=== PATIENT | male | born 1950 | race Caucasian/White ===

== ENCOUNTER 2017-11-16 11:02 | Emergency (ER) | payer BC, MEDICARE ==
--- NOTE | 2017-11-16 11:28 | ED ---
Chest Pain HPI - General Chief Complaint: Chest Pain Stated Complaint: chest pain Time Seen by Provider: 11/16/17 11:09 Source: patient, family, RN notes reviewed Mode of arrival: wheelchair Limitations: no limitations - History of Present Illness Initial Comments: This is a 67-year-old male with a history of heart disease and states he had the onset this morning of some sharp intermittent central chest pain currently is gone now is nnyj-gx-[id number] in severity when it came on. He got worse with deep breathing and not associated with any fevers chills sweats. Additionally he does have what he believes been abscessed tooth left lower molar with some drainage and discharges have pain in this area right now it's 8/10 severity. He has any fevers chills nausea vomiting or sweats. MD Complaint: chest pain, other - Related Data Home Medications Medication Instructions Recorded Confirmed Clopidogrel Bisulfate [Clopidogrel] 75 mg PO HS 06/07/14 11/16/17 Lisinopril 2.5 mg PO HS 06/07/14 11/16/17 Aspirin 81 mg PO DAILY 06/21/14 11/16/17 Metoprolol Tartrate [Lopressor] 12.5 mg PO BID 11/16/17 11/16/17 Previous Rx's Medication Instructions Recorded Ibuprofen 800 mg PO Q6HR PRN #20 tablet 11/16/17 Penicillin V Potassium [Pen Vee K] 500 mg PO QID #40 tablet 11/16/17 Allergies Allergy/AdvReac Type Severity Reaction Status Date / Time codeine Allergy Dyspnea Verified 11/16/17 11:27 Review of Systems ROS Statement: Those systems with pertinent positive or pertinent negative responses have been documented in the HPI. ROS Other: All systems not noted in ROS Statement are negative. EKG Findings - EKG Results: EKG: interpreted by MARGARETTE BALL (This does appear to be a normal EKG there is some artifact present.) Past Medical History Past Medical History: Coronary Artery Disease (CAD), Hyperlipidemia, Hypertension, Musculoskeletal Disorder Additional Past Medical History / Comment(s): POSS TORN ROTATOR CUFF, RT History of Any Multi-Drug Resistant Organisms: None Reported Past Surgical History: Back Surgery Additional Past Surgical History / Comment(s): ARCH ARTERIOGRAM 06/14/14 Past Anesthesia/Blood Transfusion Reactions: No Reported Reaction Past Psychological History: No Psychological Hx Reported Smoking Status: Former smoker Past Alcohol Use History: None Reported Past Drug Use History: None Reported - Past Family History Mother Family Medical History: Cancer Mother Sister(s) Family Medical History: Cancer General Exam - General Exam Comments Initial Comments: This is a well-developed well-nourished awake alert oriented 3 male Limitations: no limitations General appearance: alert, anxious Head exam: Present: atraumatic, normocephalic, normal inspection Eye exam: Present: normal appearance, PERRL, EOMI. Absent: scleral icterus, conjunctival injection, periorbital swelling ENT exam: Present: mucous membranes moist, other (Erythema to the gumline some tenderness to percussion over the tooth #19.) Neck exam: Present: normal inspection. Absent: tenderness, meningismus, lymphadenopathy Respiratory exam: Present: normal lung sounds bilaterally. Absent: respiratory distress, wheezes, rales, rhonchi, stridor Cardiovascular Exam: Present: regular rate, normal rhythm, normal heart sounds. Absent: systolic murmur, diastolic murmur, rubs, gallop, clicks GI/Abdominal exam: Present: soft, normal bowel sounds. Absent: distended, tenderness, guarding, rebound, rigid Extremities exam: Present: normal inspection, full ROM, normal capillary refill. Absent: tenderness, pedal edema, joint swelling, calf tenderness Back exam: Present: normal inspection Neurological exam: Present: alert, oriented X3, CN II-XII intact Psychiatric exam: Present: normal affect, normal mood Skin exam: Present: warm, dry, intact, normal color. Absent: rash Course Vital Signs 11/16/17 11/16/17 11/16/17 11:05 11:28 12:07 Temperature 96.9 F L Pulse Rate 83 77 75 Respiratory 18 18 18 Rate Blood Pressure 211/94 211/93 191/96 O2 Sat by Pulse 96 99 100 Oximetry 11/16/17 13:11 Temperature Pulse Rate 72 Respiratory 18 Rate Blood Pressure 173/91 O2 Sat by Pulse 100 Oximetry Chest Pain MDM - MDM I did review the imaging and report no acute findings. Patient has no further chest pain he does however still had the pain. We given IV antibiotics IV pain medication is a keep his follow-up with her dentist tomorrow return when necessary Disposition Clinical Impression: Pain, dental, Atypical chest pain, Gingivitis, Dental abscess Disposition: HOME SELF-CARE Condition: Good Instructions: Chest Pain (ED), Dental Abscess (ED), Toothache (ED) Prescriptions: Ibuprofen 800 mg PO Q6HR PRN #20 tablet PRN Reason: Pain Penicillin V Potassium [Pen Vee K] 500 mg PO QID #40 tablet Referrals: None,Stated [Primary Care Provider] - 1-2 days
[2017-11-16 11:36] LABS: Basophils # (A) 0.1 k/uL (0-0.2); Basophils % (A) 1 %; Eosinophils # (A) 0.1 k/uL (0-0.7); Eosinophils % (A) 1 %; HCT 48.9 % (39.0-53.0); HGB 15.1 gm/dL (13.0-17.5); Lymphocytes # (A) 1.3 k/uL (1.0-4.8); Lymphocytes % (A) 12 %; MCH 26.2 pg (25.0-35.0); MCHC 30.9 g/dL (31.0-37.0); MCV 84.8 fL (80.0-100.0); Mean Platelet Volume 7.5; Monocytes # (A) 0.6 k/uL (0-1.0); Monocytes % (A) 5 %; Neutrophils % (A) 81 %; Platelet Count 277 k/uL (150-450); RBC 5.77 m/uL (4.30-5.90); RDW 15.6 % (11.5-15.5); WBC 11.1 k/uL (3.8-10.6)
--- NOTE | 2017-11-16 11:44 | XR ---
EXAMINATION TYPE: XR chest 2V DATE OF EXAM: 11/16/2017 COMPARISON: 06/06/2014 HISTORY: Chest pain TECHNIQUE: Frontal and lateral views of the chest are obtained. FINDINGS: Heart and mediastinum are normal. Lungs are clear. Costophrenic angles are clear. Bony tho rax is intact. There is no sign of pleural effusion. There are chest leads. IMPRESSION: No active cardiopulmonary disease. No change.
[2017-11-16 11:52] LABS: ALT 34 U/L (21-72); AST 27 U/L (17-59); Albumin 4.5 g/dL (3.5-5.0); Alkaline Phosphatase 53 U/L (38-126); Amylase 51 U/L (30-110); Anion Gap 13 mmol/L; Blood Urea Nitrogen 12 mg/dL (9-20); Calcium 10.4 mg/dL (8.4-10.2); Carbon Dioxide 22 mmol/L (22-30); Chloride 107 mmol/L (98-107); Glucose 112 mg/dL (74-99); Lipase 53 U/L (23-300); Magnesium 2.1 mg/dL (1.6-2.3); Potassium 4.3 mmol/L (3.5-5.1); Sodium 142 mmol/L (137-145); Total Bilirubin 0.3 mg/dL (0.2-1.3); Total Protein 7.9 g/dL (6.3-8.2)
[2017-11-16 11:54] LABS: D-Dimer 0.74 mg/L FEU (<0.60); INR 1.1 (<1.2); Partial Thromboplastin Time 24.7 sec (22.0-30.0); Prothrombin Time 10.9 sec (9.0-12.0)
[2017-11-16 11:59] LABS: Creatine Kinase 230 U/L (55-170)
[2017-11-16] MEDS: KETOROLAC 30 MG/ML 1 ML VIAL IVP STA ×2 (12:05→13:54)
[2017-11-16 12:13] LABS: Troponin I <0.012 ng/mL (0.000-0.034)
[2017-11-16 12:16] LABS: Creatine Kinase MB 2.5 ng/mL (0.0-2.4)
[2017-11-16] MEDS ORDERED: RX INFO: IV CONTRAST WAS GIVEN 1 EACH MISC MISCELLANE PRN (12:29)
[2017-11-16 13:13] VITALS: PULSE 72
--- NOTE | 2017-11-16 13:27 | CT ---
EXAMINATION TYPE: CT angio chest DATE OF EXAM: 11/16/2017 1:03 PM COMPARISON: NONE HISTORY: Chest Pain CT DLP: 397.9 mGycm Automated exposure control for dose reduction was used. CONTRAST: CTA scan of the thorax is performed with IV Contrast, patient injected with 70 mL of Omnipaque 350, p ulmonary embolism protocol. There are 3-D post processed images.. FINDINGS: There is mild pulmonary emphysema. The lungs are clear of consolidation. There is no evidence of a pu lmonary mass. There is no pleural effusion. Heart size is normal. There is no pericardial effusion. I see no filling defects in the pulmonary art eries. There are no hilar masses. There is no mediastinal adenopathy. Thoracic aorta is atheromatous. There is a 2 cm hypodense area in the anterior liver that is probably a cyst. I see no bony destruct taya process. There is subpleural mild reticular density at the posterior lung bases and in the lingul a left upper lobe consistent with scarring and subsegmental atelectasis. IMPRESSION: NO EVIDENCE OF PULMONARY EMBOLISM. MILD ATHEROSCLEROTIC VASCULAR DISEASE. MILD SCARRING OR SUBSEGMENT AL ATELECTASIS. EMPHYSEMA.
[2017-11-16] MEDS ORDERED: KETOROLAC 30 MG/ML 1 ML VIAL IVP STA (13:43)
[2017-11-16] MEDS ORDERED: cefTRIAXone IN SWFI 1,000 MG/10 ML SYRINGE IVP STA (13:43)
[2017-11-16 14:02] VITALS: BP 179/78; RESP 16; TEMP 97
== END 2017-11-16 14:02 | disposition home or self-care (01) ==
LOC: EC 11:02
DX: R07.89 Other chest pain (principal); K05.10 Chronic gingivitis, plaque induced; K04.7 Periapical abscess without sinus; I25.10 Atherosclerotic heart disease of native coronary artery without angina pectoris; E78.5 Hyperlipidemia, unspecified; I10 Essential (primary) hypertension; Z87.891 Personal history of nicotine dependence; Z79.82 Long term (current) use of aspirin; Z79.01 Long term (current) use of anticoagulants; Z79.899 Other long term (current) drug therapy; Z88.5 Allergy status to narcotic agent
CPT/HCPCS: 99285 ×2; 96374 ×2; 96375 ×2; 36415; 93005; 85379; 83880; 80053; 82150; 82550; 82553; 83690; 83735; 84484; 85025; 85610; 85730; 87040; 71046; 71275; Q9967; J0696; J1885

== ENCOUNTER → 2022-09-02 | Day surgery (SDC) | payer MEDICARE ==
[2022-09-01 11:06] VITALS: BMI 29.5
[~2022-09-02] MED LIST: ALPRAZolam 0.25 MG TAB PO PRN; ALPRAZolam 0.5 MG TAB PO PRN; ASPIRIN 325 MG TAB PO STA; ATORVASTATIN 80 MG TAB PO STA; BENZOCAINE SPRAY 1 CAN MUCOUS MEM ONE; HEPARIN SODIUM 1,000 UN/ML (10ML VL) IV ONE; HEPARIN SODIUM 1,000 UN/ML (10ML VL) ONE; HEPARIN SODIUM,PORCINE 10,000 UNIT in SODIUM CHLORIDE 0.9% 1,000 ML IRRIGATION PRN; HEPARIN SODIUM,PORCINE 2,500 UNIT in SODIUM CHLORIDE 0.9% 250 ML IRRIGATION PRN; HYDROmorphone 1 MG/ML 1 ML SYRINGE IVP ONE; HYDROmorphone 1 MG/ML 1 ML SYRINGE ONE; IOPAMIDOL-370 125ML BTL INJ ONE; IV FLUID CONTINUATION 1,000 ML IV ONE; LACTATED RINGERS 1,000 ML IV SCH; LIDOCAINE 1% INJ 10MG/ML (30 ML VIAL-PF) SQ ONE; MIDAZOLAM 2 MG/2 ML VIAL IV ONE; NITROGLYCERIN SL TABS 0.4 MG TAB SUBLINGUAL PRN; RX INFO: IV CONTRAST WAS GIVEN 1 EACH MISC MISCELLANE PRN; SODIUM CHLORIDE 0.9% 1,000 ML IV ONE; SODIUM CHLORIDE 0.9% 1,000 ML IV SCH; VERAPAMIL 2.5 MG/ML 2 ML AMP ONE; VERAPAMIL SYRINGE (5 MG/10 ML) INTRAARTER ONE; fentaNYL (PF) 50 MCG/ML 2 ML AMP ONE
[2022-09-02 07:19] VITALS: RESP 16; TEMP 97.2
[2022-09-02] MEDS: VERAPAMIL SYRINGE (5 MG/10 ML) INTRAARTER ONE ×2 (07:52→08:07)
--- NOTE | 2022-09-02 08:12 | P.PCN ---
Date of Procedure: 09/02/22 Operative Findings: TRANSESOPHAGEAL ECHOCARDIOGRAM BELLSTAFF: ANTONIO ROBERTS MD, RPVI INDICATION: Aortic insufficiency SEDATION: Conscious sedation COMPLICATION: None LEVEL OF SEDATION Moderate with sedation length of 10 minutes PROCEDURE DESCRIPTION: After obtaining an informed consent, the patient was brought to transesophageal echocardiogram room. Pulse oximetry and heart monitors were attached to the patient. The patient throat was sprayed using lidocaine. The patient was turned into left lateral position. After that a bite guard was placed. After an appropriate conscious sedation was initiated, the transesophageal echocardiogram was advanced through a bite guard into the mid esophagus. A 2-D echocardiogram images, color Doppler images, continuous wave images, pulse-wave images, of various cardiac structure were performed. After that the transesophageal echocardiogram probe was advanced into the stomach and fixed to obtain transgastric view was. The probe was brought into the mid esophagus. Inter-atrial septum was interrogated using 2D images, color Doppler images, and then contrast study. After that transesophageal echocardiogram was withdrawn out and upon withdrawing the descending thoracic aorta all the way up to the ar ch was evaluated. FINDING: The left ventricular dimension and systolic function appeared to be within normal limits. Ejection fraction appears to be in the range of 50-55%. The right ventricle appeared to be of normal size and function. The aortic valve appears to be trileaflet valve with no stenosis with severe aortic insufficiency by color flow Doppler as well as evidence of reversal of flow in the descending aorta. The mitral valve appeared to be mildly thickened with yazw-vd-qxtyiaya mitral regurgitation. Is tlzu-fu-kvhcwofn tricuspid regurgitation seen. No evidence of pericardial effusion identified. The interatrial septum appeared to be intact without any evidence of shunt. The left atrial appendage appears to be intact as were CONCLUSION: 1. Trileaflet aortic valve with evidence of severe aortic insufficiency by color flow Doppler as well as evidence of reversal of flow in the descending aorta 2. Normal left ventricular dimension and systolic function 3. Qwss-jn-hiweygcq mitral regurgitation 4. Mild to moderate tricuspid regurgitation 5. Intact interatrial septum 6. No evidence of pericardial effusion
--- NOTE | 2022-09-02 08:15 | P.PCN ---
Date of Procedure: 09/02/22 Operative Findings: CARDIAC CATHETERIZATION PERFORMING PHYSICIAN: Gustavo Garcia MD, RPVI PROCEDURE PERFORMED: 1. Selective right and left coronary angiogram 2. Aortic root angiogram INDICATION: Aortic insufficiency COMPLICATION: None APPROACH: Right radial artery LEVEL OF SEDATION: Moderate with a sedation length of 16 minutes PROCEDURE DESCRIPTION: After obtaining an informed consent, the patient was brought to cardiac rags laborer. Local anesthesia was performed using lidocaine subcutaneously. The right radial artery was cannulated using Seldinger technique, the guidewire passed easily, following that we advanced a 5-Croatian sheath dilator assembly, the wire and dilator were removed and sheath was flushed. Following that, 2 mg of verapamil along with 5000 unit heparin were given. Selective right and left coronary angiogram using a 6-Croatian JR4 and JL 3.5 catheters. Following that we did an aortic root angiogram using 6-Croatian pigtail catheter with power injection The procedure was completed there was no complication. SELECTIVE CORONARY ANGIOGRAM: The right coronary artery: Large caliber vessel and a dominant vessel. The mid RCA has mild disease only appeared to be in the range of 30-40%. Otherwise the RCA proximally and distally appeared to be angiographically normal. Left main: It is angiographically normal. Bifurcates into LCx and LAD The left circumflex: Large caliber vessel nondominant vessel. The LCx appeared to have mild disease only. The left anterior descending artery: Large caliber vessel. The LAD has mild disease only. It gives rises into a diagonal branch which appeared to be angiographically normal AORTIC ROOT ANGIOGRAM: Was performed in the SPANISH projection and using a power injection. There was evidence of at least 3+ aortic insufficiency CONCLUSION: 1. Mild nonobstructive coronary artery disease 2. At least 3+ aortic insufficiency
[2022-09-02 16:33] VITALS: BP 144/72; PULSE 62
== END ==
LOC: CATHCVL 06:21
PROVIDERS: ATTEND Internal Medicine Interventional Cardiology
DX: I25.10 Atherosclerotic heart disease of native coronary artery without angina pectoris (principal); I65.23 Occlusion and stenosis of bilateral carotid arteries; I08.3 Combined rheumatic disorders of mitral, aortic and tricuspid valves; Q21.19 Other specified atrial septal defect; I10 Essential (primary) hypertension; E78.5 Hyperlipidemia, unspecified; F17.210 Nicotine dependence, cigarettes, uncomplicated; Z82.49 Family history of ischemic heart disease and other diseases of the circulatory system; Z88.5 Allergy status to narcotic agent; Z79.82 Long term (current) use of aspirin; Z79.899 Other long term (current) drug therapy
CPT/HCPCS: 93312; 93320; 93325; 93454; 93567; C1769; C1894; J2250; J2001; J1644; J1170; Q9967

== ENCOUNTER 2022-12-09 08:49 | Observation (INO) | payer MEDICARE ==
[2022-12-09] MEDS ORDERED: NITROGLYCERIN OINT 1 INCH/GM PACKET TOPICAL STA (09:11)
[2022-12-09 09:25] LABS: Basophils % (A) 1 %; Eosinophils # (A) 0.1 k/uL (0-0.7); Eosinophils % (A) 2 %; HCT 40.2 % (39.0-53.0); HGB 13.1 gm/dL (13.0-17.5); Lymphocytes # (A) 1.3 k/uL (1.0-4.8); Lymphocytes % (A) 18 %; MCH 27.2 pg (25.0-35.0); MCHC 32.7 g/dL (31.0-37.0); MCV 83.4 fL (80.0-100.0); Mean Platelet Volume 7.3; Monocytes # (A) 0.5 k/uL (0-1.0); Monocytes % (A) 6 %; Neutrophils # (A) 5.2 k/uL (1.3-7.7); Neutrophils % (A) 71 %; Platelet Count 247 k/uL (150-450); RBC 4.82 m/uL (4.30-5.90); RDW 14.6 % (11.5-15.5); WBC 7.3 k/uL (3.8-10.6)
--- NOTE | 2022-12-09 09:28 | ED ---
General Adult HPI - General Chief complaint: Chest Pain Stated complaint: Chest Pain Time Seen by Provider: 12/09/22 08:54 Source: patient Mode of arrival: EMS Limitations: no limitations - History of Present Illness Initial comments: Patient is a 72-year-old male who presents emergency Department complaining of chest pain. States it was sudden onset this morning when he woke. Describes it as a sharp sensation over the left side of his chest. Radiated to the left side of his jaw. Doesn't have a history of prior cleaning cardiac cath, with known aortic valve insufficiency. At that time showed mild nonobstructive coronary disease and there is no stenting performed. Presents complaining of a sudden onset chest pain. Took an initial nitro with some relief, but it returned and he took a second nitro which resolved the pain. States he currently feels very low discomfort and it is at most a 1 out of 10. Had associated dyspnea, as well as diaphoresis with onset of pain. That is resolved. Had some mild nausea as well. No emesis. Currently is resting comfortable. No significant chest pain or shortness breath. No abdominal pain. No acute point at this time. Does have a history of hypertension, COPD, hyperlipidemia. Did not take his medications as morning. Presents for further evaluation at this time. Received 324 mg of aspirin from EMS and also received 2 of his own nitro's prior to calling EMS. Patient sees Dr. Garcia of cardiology. - Related Data Home Medications Medication Instructions Recorded Confirmed Aspirin 81 mg PO DAILY 06/21/14 12/09/22 Chlorthalidone [Hygroton] 25 mg PO DAILY 09/01/22 12/09/22 Albuterol Sulfate [Ventolin HFA] 2 puff INHALATION RT-Q6H PRN 12/09/22 12/09/22 Beclomethasone Dipropionate [Qvar 2 puff INHALATION RT-BID 12/09/22 12/09/22 80mcg Redihaler] Ipratropium [place] [Atrovent Hfa] 2 puff INHALATION RT-QID 12/09/22 12/09/22 Metoprolol Tartrate [Lopressor] 12.5 mg PO BID 12/09/22 12/09/22 Montelukast [Singulair] 10 mg PO HS 12/09/22 12/09/22 Rosuvastatin [Crestor] 10 mg PO DAILY 12/09/22 12/09/22 lisinopriL [Zestril] 10 mg PO DAILY 12/09/22 12/09/22 Allergies Allergy/AdvReac Type Severity Reaction Status Date / Time codeine Allergy Dyspnea Verified 12/09/22 09:08 Review of Systems ROS Statement: Those systems with pertinent positive or pertinent negative responses have been documented in the HPI. Review of Systems: CONST: Denies fever EYES: Denies blurry vision ENT: Denies nasal congestion C/V: Endorses chest pain RESP: Denies shortness of breath GI: Denies abdominal pain : Denies dysuria SKIN: Denies rash. MSK: Denies joint pain. NEURO: Denies headache ROS Other: All systems not noted in ROS Statement are negative. Past Medical History Past Medical History: Coronary Artery Disease (CAD), COPD, Hyperlipidemia, Hypertension, Myocardial Infarction ([place]), Musculoskeletal Disorder Additional Past Medical History / Comment(s): LEFT SHOULDER PAIN, Last Myocardial Infarction Date:: 2011 History of Any Multi-Drug Resistant Organisms: None Reported Past Surgical History: Back Surgery, Heart Catheterization, Joint Replacement Additional Past Surgical History / Comment(s): CAROTED ARTERIOGRAM , CAROTID SURGERY (LEFT ) TOTAL RIGHT SHOULDER Past Anesthesia/Blood Transfusion Reactions: No Reported Reaction Past Psychological History: No Psychological Hx Reported Smoking Status: Former smoker Past Alcohol Use History: Occasional Past Drug Use History: None Reported - Past Family History Mother Family Medical History: Cancer, Deep Vein Thrombosis (DVT) Mother Sister(s) Family Medical History: Cancer General Exam - General Exam Comments Initial Comments: General: Appears in no acute distress. HEAD: Normal with no signs of head trauma. EYES: PERRLA, EOMI, conjunctiva normal, no discharge. ENT: Hearing grossly intact, normal oropharynx. RESPIRATORY: Clear breath sounds bilaterally. No wheezes, rales, or rhonchi. C/V: Regular rate and rhythm. S1 and S2 auscultated, no edema, peripheral pulses 2+ and intact throughout ABD: Abd is soft, nontender, nondistended EXT: Normal range of motion, no obvious deformity SKIN: No rashes or lesions observed on exposed skin. NEURO: Alert and oriented 4. Limitations: no limitations Course Vital Signs 12/09/22 12/09/22 12/09/22 08:55 09:10 09:35 Temperature 98 F Pulse Rate 57 L 64 Pulse Rate [ 65 Pre Press Proofer ] Respiratory 18 18 Rate Blood Pressure 142/74 133/77 O2 Sat by Pulse 99 97 Oximetry 12/09/22 12/09/22 10:43 13:28 Temperature 97.1 F L Pulse Rate 55 L 86 Pulse Rate [ Pre Press Proofer ] Respiratory 18 18 Rate Blood Pressure 115/79 110/70 O2 Sat by Pulse 97 98 Oximetry Medical Decision Making - Medical Decision Making Based on the patient's presentation and physical exam, I'm concerned for possible cardiopulmonary etiology for his current symptoms. I would like to obtain cardiac workup including troponin, EKG, chest x-ray. He was in agreement this plan. He already received 324 millions of aspirin. He did not take his morning blood pressure medications and these will be provided. He is resting currently at this time with no chest pain, maybe borderline chest pain if at all. We'll place him on Nitro-Bid ointment. Patient was in agreement with this plan. Vital signs within acceptable limits. EKG showed no signs of acute ischemia. Laboratory studies are remarkable for an undetectable troponin. Remainder the labs are within acceptable limits. Chest x-ray showed no acute cardio pulmonary process. On reevaluation, I did recommend admission the hospital. He remains asymptomatic. Heart scores 4-5. He was in agreement this plan. I believe subcu heparin is acceptable at this time, however we will continue to monitor for any return of chest pain. Patient was in agreement this plan. I spoke with the admitting physician, Dr. Urrutia who accepted the admission. Cardiology was consulted. Was pt. sent in by a medical professional or institution (, PA, DISPLAY DESIGNER OUTSIDE, urgent care, hospital, or [facility]...) When possible be specific @ -No Did you speak to anyone other than the patient for history (EMS, parent, family, police, friend...)? What history was obtained from this source @ -No Did you review nursing and triage notes (agree or disagree)? Why? @ -I reviewed and agree with nursing and triage notes Were old charts reviewed (outside hosp., previous admission, EMS record, old E KG, old radiological studies, urgent care reports/EKG's, [facility] records)? Report findings @ -Old EKG was reviewed from November 2017. I did review the patient's recent cardiac cath from August 2022 as well. Differential Diagnosis (chest pain, altered mental status, abdominal pain women, abdominal pain men, vaginal bleeding, weakness, fever, dyspnea, syncope, headache, dizziness, GI bleed, back pain, seizure, CVA, palpatations, mental health)? @ -Differential Chest Pain: Stable Angina, Unstable Angina, STEMI, NSTEMI Aortic Dissection, Pneumothorax, Musculoskeletal, Esophageal Spasm GERD, Cholecystitis, Pancreatitis, Zoster, th is is not meant to be an all-inclusive list. EKG interpreted by me (3pts min.). @ -As above X-rays interpreted by me (1pt min.). @ -Chest x-ray reveals no acute cardiopulmonary process. CT interpreted by me (1pt min.). @ -None done U/S interpreted by me (1pt. min.). @ -None done What testing was considered but not performed or refused? (CT, X-rays, U/S, labs)? Why? @ -None What meds were considered but not given or refused? Why? @ -None Did you discuss the management of the patient with other professionals (professionals i.e. , PA, DISPLAY DESIGNER OUTSIDE, lab, RT, psych nurse, social and political studies professor, dry goods inspector, teacher, probation officer, immigration case worker)? Give summary @ -Yes, admitting physician Dr. Urrutia who accepted the patient. Was smoking cessation discussed for >3mins.? @ -No Was critical care preformed (if so, how long)? @ -No Were there social determinants of health that impacted care today? How? (Homelessness, low income, unemployed, alcoholism, drug addiction, transportation, low edu. Level, literacy, decrease access to med. care, group home, rehab)? @ -No Was there de-escalation of care discussed even if they declined (Discuss DNR or withdrawal of care, Hospice)? DNR status @ -No What co-morbidities impacted this encounter? (DM, HTN, Smoking, COPD, CAD, Cancer, CVA, ARF, Chemo, Hep., AIDS, mental health diagnosis, sleep apnea, morbid obesity)? @ -Hypertension, CAD Was patient admitted / discharged? Hospital course, mention meds given and route, prescriptions, significant lab abnormalities, going to OR and other pertinent info. @ -Patient was admitted to observation telemetry. See above for emergency Department course. Undiagnosed new problem with uncertain prognosis? @ -No Drug Therapy requiring intensive monitoring for toxicity (Heparin, Nitro, Insulin, Cardizem)? @ -No Were any procedures done? @ -No Diagnosis/symptom? @ -Chest pain Acute, or Chronic, or Acute on Chronic? @ -Acute Uncomplicated (without systemic symptoms) or Complicated (systemic symptoms)? @ -Uncomplicated Side effects of treatment? @ -No Exacerbation, Progression, or Severe Exacerbation? @ -No Poses a threat to life or bodily function? How? (Chest pain, [place], [place], pneumonia, PE, COPD, DKA, ARF, appy, cholecystitis, CVA, Diverticulitis, Homicidal, Suicidal, threat to staff... and all critical care pts) @ -Yes, if this progresses can result in significant morbidity and mortality. - Lab Data Result diagrams: 12/09/22 09:19 12/09/22 09:19 Lab Results 12/09/22 12/09/22 12/09/22 Range/Units 09:19 09:19 09:19 WBC 7.3 (3.8-10.6) k/uL RBC 4.82 (4.30-5.90) m/uL Hgb 13.1 (13.0-17.5) gm/dL Hct 40.2 (39.0-53.0) % MCV 83.4 (80.0-100.0) fL MCH 27.2 (25.0-35.0) pg MCHC 32.7 (31.0-37.0) g/dL RDW 14.6 (11.5-15.5) % Plt Count 247 (150-450) k/uL MPV 7.3 Neutrophils % 71 % Lymphocytes % 18 % Monocytes % 6 % Eosinophils % 2 % Basophils % 1 % Neutrophils # 5.2 (1.3-7.7) k/uL Lymphocytes # 1.3 (1.0-4.8) k/uL Monocytes # 0.5 (0-1.0) k/uL Eosinophils # 0.1 (0-0.7) k/uL Basophils # 0.0 (0-0.2) k/uL Sodium 139 (137-145) mmol/L Potassium 4.8 (3.5-5.1) mmol/L Chloride 105 (98-107) mmol/L Carbon Dioxide 22 (22-30) mmol/L Anion Gap 12 mmol/L BUN 17 (9-20) mg/dL Creatinine 1.05 (0.66-1.25) mg/dL Est GFR (CKD-EPI)AfAm 82 (>60 ml/min/1.73 sqM) Est GFR (CKD-EPI)NonAf 71 (>60 ml/min/1.73 sqM) Glucose 101 H (74-99) mg/dL Calcium 9.3 (8.4-10.2) mg/dL Magnesium 2.1 (1.6-2.3) mg/dL Total Bilirubin 0.5 (0.2-1.3) mg/dL AST 30 (17-59) U/L ALT 23 (4-49) U/L Alkaline Phosphatase 40 (38-126) U/L Troponin I <0.012 (0.000-0.034) ng/mL Total Protein 7.7 (6.3-8.2) g/dL Albumin 4.5 (3.5-5.0) g/dL - EKG Data -: EKG Interpreted by Me EKG Comments: 12-lead Electrocardiogram Interpretation Note EKG was reviewed and interpreted by myself. 12-lead ECG performed at 0857 is interpreted by me as revealing mild sinus bradycardia at a rate of 58 beats per minute. [place] is normal. CT interval is 140 ms, QRS durations 85 ms, QTc is 405 ms.. There were no ST or T wave abnormalities to suggest myocardial ischemia or injury. R wave progression across the precordium was satisfactory. By my interpretation this EKG is non-diagnostic for acute ischemia. When compared with EKG from November 2017, no significant change. Disposition Clinical Impression: Chest pain Disposition: ADMITTED IP TO THIS HOSP Condition: Stable Time of Disposition: 10:10
[2022-12-09] MEDS: METOPROLOL TARTRATE 12.5 MG TAB PO SCH ×2 (09:33→21:13)
[2022-12-09] MEDS: lisinopriL 10 MG TAB PO SCH (09:33)
[2022-12-09] MEDS: CHLORTHALIDONE 25 MG TAB PO SCH (09:33)
[2022-12-09 09:35] LABS: Albumin 4.5 g/dL (3.5-5.0); Calcium 9.3 mg/dL (8.4-10.2); Magnesium 2.1 mg/dL (1.6-2.3); Potassium 4.8 mmol/L (3.5-5.1); Total Bilirubin 0.5 mg/dL (0.2-1.3); Total Protein 7.7 g/dL (6.3-8.2)
--- NOTE | 2022-12-09 09:58 | XR ---
EXAMINATION TYPE: XR chest 2V DATE OF EXAM: 12/09/2022 COMPARISON: 11/16/2017, CT 11/16/2017 HISTORY: Chest pain TECHNIQUE: Frontal and lateral views of the chest are obtained. FINDINGS: The heart is not enlarged and there is no pulmonary vascular congestion. Bandlike opacitie s in the lingular segment left upper lobe which although are more pronounced, were present on previou s studies. No pneumothorax. No pleural effusion. No acute osseous abnormalities. Interval right shoul gissel arthroplasty. IMPRESSION: No acute cardiopulmonary process. Bandlike scarring in the lingular segment left upper l obe.
[2022-12-09] MEDS ORDERED: NALOXONE 0.4 MG/ML 1 ML VIAL IV PRN (10:21)
[2022-12-09 11:33] LABS: Partial Thromboplastin Time 24.1 sec (22.0-30.0); Prothrombin Time 10.8 sec (9.0-12.0)
[2022-12-09] MEDS ORDERED: HEPARIN SODIUM 1,000 UN/ML (10ML VL) IV PRN (11:34)
[2022-12-09] MEDS ORDERED: HEPARIN SODIUM 1,000 UN/ML (10ML VL) IV ONE (11:34)
[2022-12-09] MEDS ORDERED: HEPARIN SOD,PORK IN 0.45% NACL 25,000 UNIT in 0.45% NACL 1 250ML.BAG IV SCH (11:45)
[2022-12-09] MEDS ORDERED: ALBUTEROL HFA INHALER INHALATION PRN (12:01)
--- NOTE | 2022-12-09 12:01 | P.HPIM ---
History of Present Illness H&P Date: 12/09/22 Patient is a 74 yo male with hx of CAD, COPD, HTN, and HLD who presented to the ED with complaints of chest pain. He had taken 2 nitro at home with relief. On arrival to the emergency department he was slightly bradycardiac at a rate of 57. His initial EKD showed NSR at a rate of [address]-T wave changes. Initially laboratory analysis was unremarkable and troponin was negative. Patient seen and examined at bedside. Woke up with chest pain this morning at 5 am. He took an Aspirin but chest pain worsened. He woke back up at 7 am with stabbing chest pain and shortness of breath. He also reported +light headed, left jaw and shoulder pain, + diaphoresis. He denied nausea. He took 1 nitro which reduced the pain level by half and then abated by during transport to the emergency department. Follows with Dr. Garcia for aortic insufficiency. Pertinent positives and negatives as discussed in HPI, a complete review of systems was performed and all other systems are negative. Vital signs reviewed General: nontoxic, no distress, appears at stated age Derm: warm, dry Head: atraumatic, normocephalic, symmetric Eyes: EOMI, no lid lag, anicteric sclera, pupils equal round reactive to light ENT: Nose and ears atraumatic, no thrush, no pharyngeal erythema Neck: No thyromegaly, no cervical lymphadenopathy, trachea midline, supple Mouth: no lip lesion, mucus membranes moist Cardiovascular: S1S2 reg, + grade 3 murmur, positive posterior tibial pulse bilateral, no edema, capillary refill less than 2 seconds Lungs: clear to auscultation bilateral, no rhonchi, no rales, no wheeze, no accessory muscle use Abdominal: soft, nontender to palpation, no guarding, no appreciable organomegaly, normal bowel sounds Ext: no gross muscle atrophy, muscle strength 5 out of 5 in all 4 extremities, no contractures Neuro: CN II-XII grossly intact, light touch intact all 4 extremities, finger to nose within normal limits, Psych: Alert, oriented, appropriate affect Assessment/Plan: Unstable angina Aortic Insufficiency - continue with nitro paste - recheck EKG now - start heparin gtt - 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 DVT prophylaxis: Heparin gtt Discussed with: nursing, ED provider Anticipated discharge date: Pending clinical course Anticipated discharge place: Pending clinical course A total of 65 minutes was spent on the care of this complex patient more than 50% of the time was spent in counseling and care coordination. Past Medical History Past Medical History: Coronary Artery Disease (CAD), COPD, Hyperlipidemia, Hypertension, Myocardial Infarction ([place]), Musculoskeletal Disorder Additional Past Medical History / Comment(s): LEFT SHOULDER PAIN, Last Myocardial Infarction Date:: 2011 History of Any Multi-Drug Resistant Organisms: None Reported Past Surgical History: Back Surgery, Heart Catheterization, Joint Replacement Additional Past Surgical History / Comment(s): CAROTED ARTERIOGRAM , CAROTID SURGERY (LEFT ) TOTAL RIGHT SHOULDER Past Anesthesia/Blood Transfusion Reactions: No Reported Reaction Past Psychological History: No Psychological Hx Reported Smoking Status: Former smoker Past Alcohol Use History: Occasional Past Drug Use History: None Reported - Past Family History Mother Family Medical History: Cancer, Deep Vein Thrombosis (DVT) Mother Sister(s) Family Medical History: Cancer Medications and Allergies Home Medications Medication Instructions Recorded Confirmed Type Aspirin 81 mg PO DAILY 06/21/14 12/09/22 History Chlorthalidone [Hygroton] 25 mg PO DAILY 09/01/22 12/09/22 History Albuterol Sulfate [Ventolin HFA] 2 puff INHALATION RT-Q6H PRN 12/09/22 12/09/22 History Beclomethasone Dipropionate [Qvar 2 puff INHALATION RT-BID 12/09/22 12/09/22 History 80mcg Redihaler] Ipratropium [place] [Atrovent Hfa] 2 puff INHALATION RT-QID 12/09/22 12/09/22 History Metoprolol Tartrate [Lopressor] 12.5 mg PO BID 12/09/22 12/09/22 History Montelukast [Singulair] 10 mg PO HS 12/09/22 12/09/22 History Rosuvastatin [Crestor] 10 mg PO DAILY 12/09/22 12/09/22 History lisinopriL [Zestril] 10 mg PO DAILY 12/09/22 12/09/22 History Allergies Allergy/AdvReac Type Severity Reaction Status Date / Time codeine Allergy Dyspnea Verified 12/09/22 09:08 Physical Exam Osteopathic Statement: *. No significant issues noted on an osteopathic structural exam other than those noted in the History and Physical/Consult. Vitals: Vital Signs Temp Pulse Pulse Resp BP Pulse Ox 12/09/22 10:43 97.1 F L 55 L 18 115/79 97 12/09/22 09:35 64 18 133/77 97 12/09/22 09:10 65 12/09/22 08:55 98 F 57 L 18 142/74 99 Intake and Output 12/08/22 12/09/22 12/09/22 22:59 06:59 14:59 Other: Weight 91.172 kg Results CBC & Chem 7: 12/09/22 09:19 12/09/22 09:19 Labs: Abnormal Lab Results - Last 24 Hours (Table) 12/09/22 Range/Units 09:19 Glucose 101 H (74-99) mg/dL
--- NOTE | 2022-12-09 13:10 | P.CRDCN ---
History of Present Illness Consult date: 12/09/22 Consult reason: chest pain History of present illness: History of present illness: This is a 72-year-old male patient of Dr. Garcia with past medical history of coronary artery disease, hypertension, dyslipidemia, valvular heart disease, carotid atherosclerosis status post left carotid endarterectomy. In July, patient was in the office with concerns for progressive exertional dyspnea associated with chest discomfort and patient was scheduled for BASIL and cardiac catheterization. See findings below. We have been asked to see the patient regarding chest pain. Patient has an onset of chest pain with some improvement with nitroglycerin 2. Patient also had some dyspnea, diaphoresis and nausea at the time. He had several episodes overnight but none at this time. EKG sinus bradycardia at 50 bpm CBC unremarkable. Electrolytes and renal function normal. Troponin negative 1. Liver function tests are normal. Magnesium 2.1. D-dimer 0.74. Chest x-ray reveals no acute cardiopulmonary process Echocardiogram 06/2022: Moderate to severe AR, dilated aorta at 3.4 cm, normal EF BASIL 09/02/2022 revealed trileaflet aortic valve with evidence of severe aortic insufficiency as well as reversal of flow in the descending aorta. Normal left ventricular dimension and systolic function. Mild to moderate mitral regurgitation. Mild to moderate tricuspid regurgitation. Intact interatrial septum. No evidence of pericardial effusion Cardiac catheterization 09/02/2022 revealed mild nonobstructive coronary artery disease. At least 3+ aortic insufficiency. Home cardiac medications: Aspirin 81 mg daily, chlorthalidone 25 mg daily, william nopril 10 mg daily, Lopressor 12.5 mg twice daily, Crestor 10 mg daily Review Of Systems: At the time of my evaluation: Constitutional: No fever, no chills. No weakness, fatigue or lethargy. EENT: No headache. No dizziness. Lungs: No shortness of breath, cough, no sputum production. No wheezing. Cardiovascular: No chest pain, no lower extremity edema. No palpitations. No paroxysmal nocturnal dyspnea. No orthopnea. No lightheadedness or dizziness. No syncopal episodes. Abdominal: No abdominal pain. No nausea, vomiting. No diarrhea. No constipation. No bloody or tarry stools. Genitourinary: No dysuria.. No urinary retention. Musculoskeletal: No myalgias. No muscle weakness, no frequent falls. No back pain. No neck pain. Integumentary: No wounds. No rash. No unusual bruising. Neurologic: No aphasia. No facial droop. No change in mentation. No head injury. No headache. Psychiatric: No depression. No anxiety. Endocrine: No abnormal blood sugars. Physical examination: Gen: This is a 72-year-old male. He is resting in the ears structure and appears to be comfortable and in no acute distress. VS: reviewed HEENT: Head is atraumatic, normocephalic. Pupils equal, round. Sclerae is anicteric. NECK: Supple. No JVD. No lymphadenopathy. No thyromegaly. LUNGS: Clear to auscultation. No wheezes or rhonchi. No intercostal retractions. HEART: Regular rate and rhythm. Diastolic murmur at the right sternal border ABDOMEN: Soft. Bowel sounds are present. No masses. No tenderness. EXTREMITIES: No pedal edema. No calf tenderness. NEUROLOGICAL: Patient is awake, alert and oriented x3. Cranial nerves 2 through 12 are grossly intact. Assessment: Chest pain rule out non-ST elevated myocardial infarction Severe aortic insufficiency Mild to moderate MR and TR Coronary artery disease, mild nonobstructive Hypertension Dyslipidemia Carotid artery disease status post endarterectomy Plan: Resume patient's home medications Obtain serial troponins Obtain 2-D echocardiogram and Doppler study to assess cardiac structure and function Patient may benefit from cardiothoracic surgery evaluation for valve repair/replacement Further recommendations to follow based upon clinical course Thank you kindly for this consultation. Nurse practitioner note has been reviewed, I agree with documented findings and plan of care. Patient was seen and examined. Past Medical History Past Medical History: Coronary Artery Disease (CAD), COPD, Hyperlipidemia, Hypertension, Myocardial Infarction ([place]), Musculoskeletal Disorder Additional Past Medical History / Comment(s): LEFT SHOULDER PAIN, Last Myocardial Infarction Date:: 2011 History of Any Multi-Drug Resistant Organisms: None Reported Past Surgical History: Back Surgery, Heart Catheterization, Joint Replacement Additional Past Surgical History / Comment(s): CAROTED ARTERIOGRAM , CAROTID SURGERY (LEFT ) TOTAL RIGHT SHOULDER Past Anesthesia/Blood Transfusion Reactions: No Reported Reaction Past Psychological History: No Psychological Hx Reported Smoking Status: Former smoker Past Alcohol Use History: Occasional Past Drug Use History: None Reported - Past Family History Mother Family Medical History: Cancer, Deep Vein Thrombosis (DVT) Mother Sister(s) Family Medical History: Cancer Medications and Allergies Home Medications Medication Instructions Recorded Confirmed Type Aspirin 81 mg PO DAILY 06/21/14 12/09/22 History Chlorthalidone [Hygroton] 25 mg PO DAILY 09/01/22 12/09/22 History Albuterol Sulfate [Ventolin HFA] 2 puff INHALATION RT-Q6H PRN 12/09/22 12/09/22 History Beclomethasone Dipropionate [Qvar 2 puff INHALATION RT-BID 12/09/22 12/09/22 History 80mcg Redihaler] Ipratropium [place] [Atrovent Hfa] 2 puff INHALATION RT-QID 12/09/22 12/09/22 History Metoprolol Tartrate [Lopressor] 12.5 mg PO BID 12/09/22 12/09/22 History Montelukast [Singulair] 10 mg PO HS 12/09/22 12/09/22 History Rosuvastatin [Crestor] 10 mg PO DAILY 12/09/22 12/09/22 History lisinopriL [Zestril] 10 mg PO DAILY 12/09/22 12/09/22 History Allergies Allergy/AdvReac Type Severity Reaction Status Date / Time codeine Allergy Dyspnea Verified 12/09/22 09:08 Physical Exam Vitals: Vital Signs Temp Pulse Pulse Resp BP Pulse Ox 12/09/22 10:43 97.1 F L 55 L 18 115/79 97 12/09/22 09:35 64 18 133/77 97 12/09/22 09:10 65 12/09/22 08:55 98 F 57 L 18 142/74 99 Intake and Output 12/08/22 12/09/22 12/09/22 22:59 06:59 14:59 Other: Weight 91.172 kg Results 12/09/22 09:19 12/09/22 09:19 Cardiac Enzymes 12/09/22 12/09/22 Range/Units 09:19 09:19 AST 30 (17-59) U/L Troponin I <0.012 (0.000-0.034) ng/mL Coagulation 12/09/22 Range/Units 10:57 PT 10.8 (9.0-12.0) sec APTT 24.1 (22.0-30.0) sec CBC 12/09/22 Range/Units 09:19 WBC 7.3 (3.8-10.6) k/uL RBC 4.82 (4.30-5.90) m/uL Hgb 13.1 (13.0-17.5) gm/dL Hct 40.2 (39.0-53.0) % Plt Count 247 (150-450) k/uL Comprehensive Metabolic Panel 12/09/22 Range/Units 09:19 Sodium 139 (137-145) mmol/L Potassium 4.8 (3.5-5.1) mmol/L Chloride 105 (98-107) mmol/L Carbon Dioxide 22 (22-30) mmol/L BUN 17 (9-20) mg/dL Creatinine 1.05 (0.66-1.25) mg/dL Glucose 101 H (74-99) mg/dL Calcium 9.3 (8.4-10.2) mg/dL AST 30 (17-59) U/L ALT 23 (4-49) U/L Alkaline Phosphatase 40 (38-126) U/L Total Protein 7.7 (6.3-8.2) g/dL Albumin 4.5 (3.5-5.0) g/dL Current Medications Generic Name Dose Route Start Last Admin Trade Name Freq PRN Reason Stop Dose Admin Albuterol Sulfate 2 puff 12/09/22 12:01 Albuterol Hfa Inhaler INHALATION RT-Q6H PRN Shortness Of Breath Aspirin 81 mg 12/10/22 09:00 Aspirin 81 Mg PO DAILY [facility] Atorvastatin Calcium 80 mg 12/09/22 12:15 Atorvastatin 80 Mg Tab PO DAILY [facility] Chlorthalidone 25 mg 12/09/22 09:15 12/09/22 09:33 Chlorthalidone 25 Mg Tab PO 25 mg DAILY [facility] Administration Fluticasone Propionate 2 puff 12/09/22 20:00 Fluticasone 110 Mcg Inhaler INHALATION RT-BID [facility] Heparin Sodium (Porcine) 0 unit 12/09/22 11:34 Heparin Sodium 1,000 Un/Ml (10ml Vl) IV PER PROTOCOL PRN Low PTT Protocol Heparin Sodium/Sodium Chloride 250 mls @ 10.002 mls/hr 12/09/22 11:45 25,000 unit/ Sodium Chloride IV .Q24H [facility] Protocol 10.97 UNITS/KG/HR Ipratropium [place] 0.5 mg 12/09/22 16:00 Ipratropium 0.5 Mg/2.5 Ml Nebu INHALATION RT-QID RAJAN Lisinopril 10 mg 12/09/22 09:15 12/09/22 09:33 Lisinopril 10 Mg Tab PO 10 mg DAILY RAJAN Administration Metoprolol Tartrate 12.5 mg 12/09/22 09:15 12/09/22 09:33 Metoprolol Tartrate 12.5 Mg Tab PO 12.5 mg BID RAJAN Administration Montelukast Sodium 10 mg 12/09/22 21:00 Montelukast 10 Mg Tab PO HS [facility] Naloxone HCl 0.2 mg 12/09/22 10:21 Naloxone 0.4 Mg/Ml 1 Ml Vial IV Q2M PRN Opioid Reversal Intake and Output 12/08/22 12/09/22 12/09/22 22:59 06:59 14:59 Other: Weight 91.172 kg Patient Weight 12/10/22 06:59 Weight 91.172 kg 12/09/22 09:19 12/09/22 09:19
[2022-12-09] MEDS: ATORVASTATIN 80 MG TAB PO SCH ×2 (13:16→13:18)
--- NOTE | 2022-12-09 15:05 | CT ---
EXAMINATION TYPE: CT chest angio for PE DATE OF EXAM: 12/09/2022 COMPARISON: 11/16/2017 HISTORY: chest pain CT DLP: 451.9 mGycm CONTRAST: CT chest with contrast and 3D reconstruction with MIP imaging is performed with IV Contrast, patient injected with 100 cc mL of Isovue 370. Contrast-enhanced CT of the chest was performed through the course of the pulmonary arteries with jammie g and mediastinal window settings submitted. 3D reconstruction with MIP imaging was also performed. PULMONARY ARTERIES: The pulmonary arteries and their major tributaries are patent. I do not see angelic dence for sizable filling defect to suggest pulmonary embolic process. LUNGS: The lungs are clear and free of infiltrate. No evidence for atelectasis. No pulmonary nodule or mass is detected. No pleural effusion. Basilar emphysematous changes. MEDIASTINUM: Thoracic aorta is of normal caliber,however, evaluation is limited given timing of the contrast bolus. If there is concern for thoracic aortic pathology consider BASIL. Correlate clinicall y . The heart is not enlarged. No evidence for mediastinal mass. No mediastinal lymph nodes greater than 1cm. HILAR STRUCTURES: No evidence for mass. No hilar lymph nodes greater than 1 cm. UPPER ABDOMEN: No significant abnormality is seen. IMPRESSION: 1. No evidence for Pulmonary embolism at this time.
[2022-12-09] MEDS: IPRATROPIUM 0.5 MG/2.5 ML NEBU INHALATION SCH ×2 (15:21→19:58)
[2022-12-09] MEDS ORDERED: HEPARIN SODIUM,PORCINE/PF 5,000 UNIT/0.5 ML SYRINGE SQ SCH (16:00)
--- NOTE | 2022-12-09 17:37 | CA ---
Transthoracic Echo Report Name: Jose Abdul Age: 72 Gender: M : 1950 Exam Date: 12/09/2022 14:32 Exam Location: [facility] Ht (in): 62 Wt (lb): 201 Ordering Physician: Jessica Mills Attending/Referring Phys: [id number], Gene Water Analyst Tammi Fischer RDCS Procedure CPT: Indications: LVF Cardiac Hx: Technical Quality: Contrast 1: Total Dose (mL): Contrast 2: Total Dose (mL): MEASUREMENTS (Male / Female) Normal Values 2D ECHO LV Diastolic Diameter PLAX 5.3 cm 4.2 - 5.9 / 3.9 - 5.3 cm LV Systolic Diameter PLAX 3.7 cm IVS Diastolic Thickness 1.1 cm 0.6 - 1.0 / 0.6 - 0.9 cm LVPW Diastolic Thickness 1.0 cm 0.6 - 1.0 / 0.6 - 0.9 cm LV Relative Wall Thickness 0.4 RV Internal Dim ED PLAX 3.4 cm LA Systolic Diameter LX 3.2 cm 3.0 - 4.0 / 2.7 - 3.8 cm LA Volume 49.5 cm??? 18 - 58 / 22 - 52 cm??? M-MODE Aortic Root Diameter MM 2.7 cm LA Systolic Diameter MM 3.9 cm LA Ao Ratio MM 1.4 MV E Point Septal Separation 0.2 cm AV Cusp Separation MM 1.4 cm DOPPLER AV Peak Velocity 296.9 cm/s AV Peak Gradient 41.0 mmHg AV Mean Velocity 208.5 cm/s AV Mean Gradient 19.8 mmHg AV Velocity Time Integral 59.2 cm AI Peak Velocity 457.6 cm/s AI Peak Gradient 83.8 mmHg AI Pressure Half Time 491.0 ms LVOT Peak Velocity 134.5 cm/s LVOT Peak Gradient 7.2 mmHg MV Area PHT 2.4 cm??? Mitral E Point Velocity 47.5 cm/s Mitral A Point Velocity 94.8 cm/s Mitral E to A Ratio 0.5 MV Deceleration Time 313.1 ms MV E' Velocity 4.8 cm/s Mitral E to MV E' Ratio 9.9 TR Peak Velocity 218.7 cm/s TR Peak Gradient 19.1 mmHg FINDINGS Left Ventricle Left ventricular ejection fraction is estimated at 55 %. Left ventricular cavity size normal. Mildly increased left ventricular wall thickness. Right Ventricle Normal right ventricular size and function. Right ventricular systolic pressure within normal limits. Right Atrium Normal right atrial size. Left Atrium Normal left atrial size. Mitral Valve Structurally normal mitral valve. Trace to mild mitral regurgitation. Aortic Valve Moderate aortic stenosis with a peak gradient of 41 mmHg and a mean gradient of 20 mmHg. Moderate aortic regurgitation. Tricuspid Valve Structurally normal tricuspid valve. Mild tricuspid regurgitation. Pulmonic Valve Structurally normal pulmonic valve. Pericardium Normal pericardium. Aorta Normal size aortic root and proximal ascending aorta. CONCLUSIONS Normal LV systolic function Moderate aortic stenosis Moderate aortic regurgitation Previewed by: Dr. Otto Bowen MD (Electronically Signed) Final Date: 09 December 2022 17:36
[2022-12-09] MEDS ORDERED: ATORVASTATIN 20 MG TAB PO SCH (18:00)
[2022-12-09] MEDS: FLUTICASONE 110 MCG INHALER INHALATION SCH (20:00)
[2022-12-09] MEDS ORDERED: MONTELUKAST 10 MG TAB PO SCH (21:00)
[2022-12-10] MEDS ORDERED: HYDROcodone/APAP 5-325MG 1 EACH TAB PO PRN (01:11)
[2022-12-10] MEDS ORDERED: IBUPROFEN 400 MG TAB PO PRN (01:12)
[2022-12-10 01:23] LABS: Basophils # (A) 0.1 k/uL (0-0.2); Basophils % (A) 1 %; Eosinophils # (A) 0.2 k/uL (0-0.7); Eosinophils % (A) 2 %; HGB 12.6 gm/dL (13.0-17.5); Lymphocytes # (A) 1.1 k/uL (1.0-4.8); Lymphocytes % (A) 14 %; MCH 27.3 pg (25.0-35.0); MCHC 33.1 g/dL (31.0-37.0); MCV 82.4 fL (80.0-100.0); Mean Platelet Volume 7.3; Monocytes # (A) 0.5 k/uL (0-1.0); Monocytes % (A) 6 %; Neutrophils # (A) 6.2 k/uL (1.3-7.7); Neutrophils % (A) 76 %; Platelet Count 265 k/uL (150-450); RBC 4.61 m/uL (4.30-5.90); RDW 14.5 % (11.5-15.5); WBC 8.2 k/uL (3.8-10.6)
[2022-12-10 07:25] VITALS: BP 131/64; RESP 18; TEMP 97.6
[2022-12-10] MEDS: CHLORTHALIDONE 25 MG TAB PO SCH (08:41)
[2022-12-10] MEDS: ATORVASTATIN 80 MG TAB PO SCH (08:41)
[2022-12-10] MEDS: lisinopriL 10 MG TAB PO SCH (08:41)
[2022-12-10] MEDS: IPRATROPIUM 0.5 MG/2.5 ML NEBU INHALATION SCH ×2 (08:54→12:13)
[2022-12-10] MEDS: FLUTICASONE 110 MCG INHALER INHALATION SCH (08:55)
[2022-12-10] MEDS ORDERED: ASPIRIN 81 MG PO SCH (09:00)
[2022-12-10] MEDS ORDERED: PANTOPRAZOLE 40 MG/10 ML VIAL IVP SCH (09:00)
[2022-12-10 09:01] VITALS: PULSE 64
[2022-12-10 09:34] LABS: Prothrombin Time 10.8 sec (9.0-12.0)
[2022-12-10 10:44] LABS: Basophils # (A) 0.03 X 10*3/uL (0.00-0.10); Basophils % (A) 0.5 %; Eosinophils % (A) 3.2 %; HCT 37.6 % (39.6-50.0); HGB 11.8 g/dL (13.0-17.0); Immature Grans, Automated 0.3 %; Lymphocytes # (A) 1.55 X 10*3/uL (0.90-5.00); Lymphocytes % (A) 24.4 %; MCH 26.7 pg (27.0-32.0); MCHC 31.4 g/dL (32.0-37.0); MCV 85.1 fL (80.0-97.0); Mean Platelet Volume 10.1 fL (9.5-12.2); Monocytes # (A) 0.58 X 10*3/uL (0.20-1.00); Monocytes % (A) 9.1 %; NRBC Per 100 WBC 0 /100 WBCS (0.0-0.0); Neutrophils # (A) 3.96 X 10*3/uL (1.80-7.70); Neutrophils % (A) 62.5 %; Platelet Count 265 X 10*3/uL (140-440); RBC 4.42 X 10*6/uL (4.40-5.60); RDW 14.6 % (11.5-14.5); WBC 6.34 X 10*3/uL (4.50-10.00)
--- NOTE | 2022-12-10 10:50 | XR ---
EXAMINATION TYPE: XR hand limited RT DATE OF EXAM: 12/10/2022 9:24 AM INDICATION: Patient age:Male; 72 years old; Reason for study: pain wrist and middle finger; PHH. COMPARISON: None TECHNIQUE: Frontal, lateral and oblique views of the right hand were obtained. FINDINGS: Normal alignment of the visualized joints. Multidigit DIP and PIP joint space narrowing wit h marginal osteophytosis. Degenerative changes at the first MCP joint. No acute osseous pathology is identified. No evidence of soft tissue swelling. IMPRESSION: 1. No acute osseous pathology. 2. Mild osteoarthritic changes.
[2022-12-10] MEDS: METOPROLOL TARTRATE 12.5 MG TAB PO SCH (10:59)
[2022-12-10 11:06] LABS: BUN/Creat Ratio 14.49 Ratio (12.00-20.00); Blood Urea Nitrogen 17.1 mg/dL (9.0-27.0); Calcium 9.2 mg/dL (8.7-10.3); Carbon Dioxide 21.4 mmol/L (20.0-27.5); Non-African American GFR(CKD) 61.3 (60.0-200.0); Potassium 4.4 mmol/L (3.5-5.5)
--- NOTE | 2022-12-10 11:55 | P.DS ---
Providers Date of admission: 12/09/22 10:21 Expected date of discharge: 12/10/22 Attending physician: Rodrigo Pérez MD Consults: 12/09/22 10:21 Consult Physician Routine Consulting Provider: [facility] Consult Reason/Comments: chest pain Do you want consulting provider notified?: Yes Primary care physician: Stated None Hospital Course: Discharge Diagnosis: Non cardiac chest pain Probable GERD Right wrist strain Hypertension Dyslipidemia COPD without exacerbation Hospital Course: Patient is a 74 yo male with hx of CAD, COPD, HTN, and HLD who presented to the ED with complaints of chest pain. He had taken 2 nitro at home with relief. On arrival to the emergency department he was slightly bradycardiac at a rate of 57. His initial EKD showed NSR at a rate of [address]-T wave changes. Initially laboratory analysis was unremarkable and troponin was negative. He had recurrent chest pain during hospitalization despite being on the Nitropaste. A heparin drip was started. D-dimer was elevated and he underwent a CT of the chest which had no evidence of pulmonary embolism. Cardiology was consulted. He underwent in echocardiogram which demonstrated an ejection fraction of 55%, moderate aortic stenosis, and moderate aortic regurgitation. Troponins remained negative. He did have chest pain when lying flat but not when up and with exertion. He was cleared by cardiology for discharge home. He was complaining of significant right hand pain. An x-ray performed which showed DIP and PIP joint space narrowing with marginal osteophytes and degenerative changes at the first MCP joint. He was determined stable for discharge. Follow-up: He has a follow-up appointment On 12/12/22. He will stop taking aspirin. He'll start on Motrin 600 mg every 8 hours. He'll do a trial of the PPI for the next 30 days to assess for possibility of acid reflux. He will take Motrin 600 every 8 hours as needed for pain in his right hand. He'll continue with rest, ice, compression, and elevation. If he continues to have hand pain after next week he'll follow-up with [facility], he has been seeing Dr. Britton for shoulder issues. Patient seen and examined at bedside. Had some chest pain at night. Has been taking aspirin every 4 hours for pain due to hand injury. Has chest pain when lying flat at night and then again with bending. Agreeable to trial of PPI and outpatient follow-up with ortho if hand unimproved. Vital signs reviewed and stable. General: nontoxic, no distress, appears at stated age Derm: warm, dry Head: atraumatic, normocephalic, symmetric Eyes: EOMI, no lid lag, anicteric sclera Mouth: no lip lesion, mucus membranes moist Cardiovascular: S1S2 reg, no murmur, positive posterior tibial pulse bilateral, Lungs: CTA bilateral, no rhonchi, no rales , no accessory muscle use Abdominal: soft, nontender to palpation, no guarding, no appreciable organomegaly Ext: no gross muscle atrophy, no edema, no contractures, hand pain with flexion and extension. Neuro: CN II-XI grossly intact, no focal neuro deficits Psych: Alert, oriented, appropriate affect A total of 25 minutes of time were spent preparing this complex discharge summary. Patient was discharged on 12/10/22. Patient Condition at Discharge: Stable Plan - Discharge Summary New Discharge Prescriptions: New Ibuprofen [Motrin] 600 mg PO Q8HR PRN #30 tab PRN Reason: Pain Pantoprazole [Protonix] 40 mg PO DAILY #30 tab Continue Aspirin 81 mg PO DAILY Chlorthalidone [Hygroton] 25 mg PO DAILY Ipratropium [place] [Atrovent Hfa] 2 puff INHALATION RT-QID Montelukast [Singulair] 10 mg PO HS Rosuvastatin [Crestor] 10 mg PO DAILY Albuterol Sulfate [Ventolin HFA] 2 puff INHALATION RT-Q6H PRN PRN Reason: Shortness Of Breath lisinopriL [Zestril] 10 mg PO DAILY Beclomethasone Dipropionate [Qvar 80mcg Redihaler] 2 puff INHALATION RT-BID Metoprolol Tartrate [Lopressor] 12.5 mg PO BID Discharge Medication List Aspirin 81 mg PO DAILY 06/21/14 [History] Chlorthalidone [Hygroton] 25 mg PO DAILY 09/01/22 [History] Albuterol Sulfate [Ventolin HFA] 2 puff INHALATION RT-Q6H PRN 12/09/22 [History] Beclomethasone Dipropionate [Qvar 80mcg Redihaler] 2 puff INHALATION RT-BID 12/09/22 [History] Ipratropium [place] [Atrovent Hfa] 2 puff INHALATION RT-QID 12/09/22 [History] Metoprolol Tartrate [Lopressor] 12.5 mg PO BID 12/09/22 [History] Montelukast [Singulair] 10 mg PO HS 12/09/22 [History] Rosuvastatin [Crestor] 10 mg PO DAILY 12/09/22 [History] lisinopriL [Zestril] 10 mg PO DAILY 12/09/22 [History] Ibuprofen [Motrin] 600 mg PO Q8HR PRN #30 tab 12/10/22 [Rx] Pantoprazole [Protonix] 40 mg PO DAILY #30 tab 12/10/22 [Rx] Follow up Appointment(s)/Referral(s): Gustavo Garcia MD [Family Provider] - 12/12/22 Gloria Quinonez DO [Doctor of Osteopathic Medicine] - 1 Week (Hand specialist at Dr. Britton's office-- could see her of Dr. Britton if your hand is not better by next week. ) None,Stated [Primary Care Provider] - 1-2 days Patient Instructions/Handouts: Wrist Injury (DC) Activity/Diet/Wound Care/Special Instructions: Activity: as tolerated Diet: heart healthy Special Instructions: Continue to wrap right hand, elevated, ice, and rest. Motrin 600 mg every 8 hours for the next 3 days and then as needed for pain Discharge Disposition: HOME SELF-CARE
--- NOTE | 2022-12-10 13:45 | P.PN ---
Subjective Progress Note Date: 12/10/22 History of present illness: This is a 72-year-old male patient of Dr. Garcia with past medical history of co ronary artery disease, hypertension, dyslipidemia, valvular heart disease, carotid atherosclerosis status post left carotid endarterectomy. In July, patient was in the office with concerns for progressive exertional dyspnea associated with chest discomfort and patient was scheduled for BASIL and cardiac catheterization. See findings below. We have been asked to see the patient regarding chest pain. Patient has an onset of chest pain with some improvement with nitroglycerin 2. Patient also had some dyspnea, diaphoresis and nausea at the time. He had several episodes overnight but none at this time. EKG sinus bradycardia at 50 bpm CBC unremarkable. Electrolytes and renal function normal. Troponin negative 1. Liver function tests are normal. Magnesium 2.1. D-dimer 0.74. Chest x-ray reveals no acute cardiopulmonary process Echocardiogram 06/2022: Moderate to severe AR, dilated aorta at 3.4 cm, normal EF BASIL 09/02/2022 revealed trileaflet aortic valve with evidence of severe aortic insufficiency as well as reversal of flow in the descending aorta. Normal left ventricular dimension and systolic function. Mild to moderate mitral regurgitation. Mild to moderate tricuspid regurgitation. Intact interatrial septum. No evidence of pericardial effusion Cardiac catheterization 09/02/2022 revealed mild nonobstructive coronary artery disease. At least 3+ aortic insufficiency. Home cardiac medications: Aspirin 81 mg daily, chlorthalidone 25 mg daily, lisinopril 10 mg daily, Lopressor 12.5 mg twice daily, Crestor 10 mg daily 12/10 Troponins negative 2. Patient had 3 episodes of chest pressure or sharp type pain during the night. It bothers him mostly when he is sleeping. 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 Patient will be ambulated and plan for follow-up in the office. Echocardiogram reveals EF of 55%, moderate aortic stenosis, moderate aortic regurgitation. Physical examination: Gen: This is a 72-year-old male. He is resting in the ears structure and appears to be comfortable and in no acute distress. VS: reviewed HEENT: Head is atraumatic, normocephalic. Pupils equal, round. Sclerae is anicteric. NECK: Supple. No JVD. No lymphadenopathy. No thyromegaly. LUNGS: Clear to auscultation. No wheezes or rhonchi. No intercostal retractions. HEART: Regular rate and rhythm. Diastolic murmur at the right sternal border ABDOMEN: Soft. Bowel sounds are present. No masses. No tenderness. EXTREMITIES: No pedal edema. No calf tenderness. NEUROLOGICAL: Patient is awake, alert and oriented x3. Cranial nerves 2 through 12 are grossly intact. Assessment: Chest pain rule out non-ST elevated myocardial infarction Severe aortic insufficiency Mild to moderate MR and TR Coronary artery disease, mild nonobstructive Hypertension Dyslipidemia Carotid artery disease status post endarterectomy Plan: Continue patient's home medications Patient is cleared for discharge and follow-up in the office with Dr. Garcia Nurse practitioner note has been reviewed, I agree with documented findings and plan of care. Patient was seen and examined. Objective - Vital Signs Vital signs: Vital Signs Temp 97.6 F 12/10/22 07:00 Pulse 64 12/10/22 09:17 Resp 18 12/10/22 07:00 BP 131/64 12/10/22 07:00 Pulse Ox 97 12/10/22 08:59 FiO2 21 12/10/22 08:59 Intake & Output 12/09/22 12/10/22 12/10/22 18:59 06:59 18:59 Intake Total 174.678 92.98 Balance 174.678 92.98 Weight 91.172 kg Intake: Intake, IV Titration 56.678 92.98 Amount Heparin Sod,Pork in 0.45% 56.678 92.98 NaCl 25,000 unit In 0.45 % NaCl 1 250ml.bag @ 10. 97 UNITS/KG/HR 10.002 mls /hr IV .Q24H RAJAN Rx#: [id number] Oral 118 Other: # Voids 1 - Labs CBC & Chem 7: 12/10/22 06:51 12/10/22 06:51 Labs: Abnormal Lab Results - Last 24 Hours (Table) 12/09/22 12/09/22 12/10/22 Range/Units 10:57 17:48 01:07 Hgb 12.6 L (13.0-17.5) gm/dL Hct 38.0 L (39.0-53.0) % APTT 32.3 H (22.0-30.0) sec D-Dimer 2.43 H (<0.60) mg/L FEU 12/10/22 12/10/22 Range/Units 01:07 06:51 Hgb (13.0-17.5) gm/dL Hct (39.0-53.0) % APTT 49.5 H 47.6 H (22.0-30.0) sec D-Dimer (<0.60) mg/L FEU
== END 2022-12-10 13:10 | disposition home or self-care (01) ==
LOC: EC 08:49 → 6NMEDSUR 10:21
PROVIDERS: ADMIT Internal Medicine; ATTEND Internal Medicine
DX: R07.89 Other chest pain (principal); R06.02 Shortness of breath; R42 Dizziness and giddiness; R61 Generalized hyperhidrosis; I10 Essential (primary) hypertension; E78.5 Hyperlipidemia, unspecified; J44.9 Chronic obstructive pulmonary disease, unspecified; I25.10 Atherosclerotic heart disease of native coronary artery without angina pectoris; S63.501A Unspecified sprain of right wrist, initial encounter; I25.2 Old myocardial infarction; Z96.611 Presence of right artificial shoulder joint; Z98.890 Other specified postprocedural states; Z87.891 Personal history of nicotine dependence; Z80.9 Family history of malignant neoplasm, unspecified; Z82.49 Family history of ischemic heart disease and other diseases of the circulatory system; Z79.82 Long term (current) use of aspirin; Z79.51 Long term (current) use of inhaled steroids; Z79.899 Other long term (current) drug therapy; Z88.5 Allergy status to narcotic agent
CPT/HCPCS: 96366; 96375; 96365; 99285; 36415; 94640 ×3; 94760 ×2; 93005; 93306; 85379; 80053; 80048; 83735; 84484; 85025 ×2; 85610 ×2; 85730 ×2; 73120; 71046; 71275; G0378 ×2; J1644 ×2; C9113; Q9967

== ENCOUNTER 2023-02-07 11:33 | Observation (INO) | payer MEDICARE ==
[2023-02-07 12:33] LABS: Basophils % (A) 1 %; Eosinophils # (A) 0.1 k/uL (0-0.7); Eosinophils % (A) 2 %; HCT 39.5 % (39.0-53.0); HGB 13.2 gm/dL (13.0-17.5); Lymphocytes # (A) 1.4 k/uL (1.0-4.8); Lymphocytes % (A) 21 %; MCH 27.2 pg (25.0-35.0); MCHC 33.4 g/dL (31.0-37.0); MCV 81.4 fL (80.0-100.0); Mean Platelet Volume 7.5; Monocytes # (A) 0.5 k/uL (0-1.0); Monocytes % (A) 7 %; Neutrophils # (A) 4.5 k/uL (1.3-7.7); Neutrophils % (A) 67 %; Platelet Count 256 k/uL (150-450); RBC 4.85 m/uL (4.30-5.90); RDW 15.1 % (11.5-15.5); WBC 6.7 k/uL (3.8-10.6)
--- NOTE | 2023-02-07 12:38 | XR ---
EXAMINATION TYPE: XR chest 2V DATE OF EXAM: 02/07/2023 COMPARISON: 12/09/2022 INDICATION: Chest pain short of breath TECHNIQUE: Frontal and lateral views of the chest are obtained. FINDINGS: The heart size is normal. The pulmonary vasculature is normal. Some minimal linear opacities at the left diaphragm. Correlate for atelectasis. This was present prev iously. Scarring could be considered.. IMPRESSION: 1. Minimal lingular infiltrate. Correlate for atelectasis or scarring.
[2023-02-07 12:49] LABS: Partial Thromboplastin Time 23.2 sec (22.0-30.0); Prothrombin Time 10.3 sec (9.0-12.0)
[2023-02-07 13:26] LABS: ALT 26 U/L (4-49); AST 22 U/L (17-59); African American GFR (CKD) >90 (>60 ml/min/1.73 sqM); Albumin 4.4 g/dL (3.5-5.0); Alkaline Phosphatase 43 U/L (38-126); Anion Gap 12 mmol/L; Blood Urea Nitrogen 17 mg/dL (9-20); Calcium 9.7 mg/dL (8.4-10.2); Carbon Dioxide 22 mmol/L (22-30); Chloride 104 mmol/L (98-107); Glucose 92 mg/dL (74-99); Non-African American GFR(CKD) 80 (>60 ml/min/1.73 sqM); Potassium 4.4 mmol/L (3.5-5.1); Sodium 138 mmol/L (137-145); Total Bilirubin 0.4 mg/dL (0.2-1.3); Total Protein 7.5 g/dL (6.3-8.2)
--- NOTE | 2023-02-07 14:22 | ED ---
Chest Pain HPI - General Chief Complaint: Chest Pain Stated Complaint: chest pain Time Seen by Provider: 02/07/23 11:45 Source: patient Mode of arrival: wheelchair Limitations: no limitations - History of Present Illness Initial Comments: 72-year-old male with past medical history of hypertension, hyperlipidemia, COPD who presents emergency room reporting chest pain and shortness of breath. Onset was yesterday around 10 AM. Pain radiates from the central portion of his chest to his left shoulder. Also has some jaw pain. Has associated nausea without vomiting. Patient is additionally short of breath. Admits to mild nonproductive cough. No history of DVT or PE. Does have a history of valvular disease and states that he is currently undergoing evaluation for possible valve replacement. Reports that he was hospitalized in November for chest pain. Pain today is somewhat consistent to the previous pain that he had however reports that it is significantly worse in severity. He has taken close to 9 nitro tablets with some improvement in his pain. He denies any fevers or chills. No other alleviating, precipitating or modifying factors - Related Data Home Medications Medication Instructions Recorded Confirmed Aspirin 81 mg PO DAILY 06/21/14 02/07/23 Albuterol Sulfate [Ventolin HFA] 2 puff INHALATION RT-Q6H PRN 12/09/22 02/07/23 Beclomethasone Dipropionate [Qvar 2 puff INHALATION RT-BID 12/09/22 02/07/23 80mcg Redihaler] Ipratropium [place] [Atrovent Hfa] 2 puff INHALATION RT-QID 12/09/22 02/07/23 Metoprolol Tartrate [Lopressor] 12.5 mg PO BID 12/09/22 02/07/23 Montelukast [Singulair] 10 mg PO HS 12/09/22 02/07/23 Rosuvastatin [Crestor] 10 mg PO DAILY 12/09/22 02/07/23 lisinopriL [Zestril] 10 mg PO DAILY 12/09/22 02/07/23 Ibuprofen [Motrin] 600 mg PO Q6H PRN 02/07/23 02/07/23 Nitroglycerin Sl Tabs [Nitrostat] 0.4 mg SL Q5M PRN 02/07/23 02/07/23 Spironolactone [Aldactone] 25 mg PO DAILY 02/07/23 02/07/23 Previous Rx's Medication Instructions Recorded Pantoprazole [Protonix] 40 mg PO DAILY #30 tab 12/10/22 Allergies Allergy/AdvReac Type Severity Reaction Status Date / Time codeine Allergy Dyspnea & Verified 02/07/23 13:29 Hives Review of Systems ROS Statement: Those systems with pertinent positive or pertinent negative responses have been documented in the HPI. ROS Other: All systems not noted in ROS Statement are negative. EKG Findings - EKG Comments: EKG Findings:: EKG demonstrates sinus bradycardia with a rate of 50. SC interval 149. QRS 93. QTC of 380. No acute ST segment elevations. Inverted T-wave lead aVL Past Medical History Past Medical History: Coronary Artery Disease (CAD), COPD, Hyperlipidemia, Hypertension, Myocardial Infarction (NM), Musculoskeletal Disorder Additional Past Medical History / Comment(s): LEFT SHOULDER PAIN, oral surgery Last Myocardial Infarction Date:: 2011 History of Any Multi-Drug Resistant Organisms: None Reported Past Surgical History: Back Surgery, Heart Catheterization, Joint Replacement Additional Past Surgical History / Comment(s): CAROTED ARTERIOGRAM , CAROTID SURGERY (LEFT ) TOTAL RIGHT SHOULDER Past Anesthesia/Blood Transfusion Reactions: No Reported Reaction Past Psychological History: No Psychological Hx Reported Smoking Status: Former smoker Past Alcohol Use History: Occasional Past Drug Use History: None Reported - Past Family History Mother Family Medical History: Cancer, Deep Vein Thrombosis (DVT) Mother Sister(s) Family Medical History: Cancer Father Family Medical History: Chest Pain / Angina, Congestive Heart Failure (CHF), CVA/TIA, Myocardial Infarction (NM) General Exam Limitations: no limitations General appearance: alert, in no apparent distress Head exam: Present: atraumatic, normocephalic, normal inspection Eye exam: Present: normal appearance, PERRL, EOMI. Absent: scleral icterus, conjunctival injection, periorbital swelling ENT exam: Present: normal exam, mucous membranes moist Neck exam: Present: normal inspection. Absent: tenderness, meningismus, lymphadenopathy Respiratory exam: Present: normal lung sounds bilaterally. Absent: respiratory distress, wheezes, rales, rhonchi, stridor Cardiovascular Exam: Present: regular rate, normal rhythm, normal heart sounds. Absent: systolic murmur, diastolic murmur, rubs, gallop, clicks GI/Abdominal exam: Present: soft, normal bowel sounds. Absent: distended, tenderness, guarding, rebound, rigid Extremities exam: Present: normal inspection, full ROM, normal capillary refill. Absent: tenderness, pedal edema, joint swelling, calf tenderness Back exam: Present: normal inspection Neurological exam: Present: alert, oriented X3, CN II-XII intact Psychiatric exam: Present: normal affect, normal mood Skin exam: Present: warm, dry, intact, normal color. Absent: rash Course Vital Signs 02/07/23 02/07/23 11:34 14:27 Temperature 97.8 F 97.8 F Pulse Rate 57 L 50 L Respiratory 20 20 Rate Blood Pressure 162/70 137/87 O2 Sat by Pulse 100 100 Oximetry Chest Pain MDM - MDM Was pt. sent in by a medical professional or institution (, TRACY, SHEARING MACHINE TENDER, urgent care, hospital, or alf...) When possible be specific @ -No Did you speak to anyone other than the patient for history (EMS, parent, family, police, friend...)? What history was obtained from this source @ -No Did you review nursing and triage notes (agree or disagree)? Why? @ -I reviewed and agree with nursing and triage notes Were old charts reviewed (outside hosp., previous admission, EMS record, old E KG, old radiological studies, urgent care reports/EKG's, alf records)? Report findings @ -I reviewed old charts Differential Diagnosis (chest pain, altered mental status, abdominal pain women, abdominal pain men, vaginal bleeding, weakness, fever, dyspnea, syncope, headache, dizziness, GI bleed, back pain, seizure, CVA, palpatations, mental health, musculoskeletal)? @ -acs, nstemi, stemi, coronary vasospasm EKG interpreted by me (3pts min.). @ -As above X-rays interpreted by me (1pt min.). @ -Yes CT interpreted by me (1pt min.). @ -None done U/S interpreted by me (1pt. min.). @ -None done What testing was considered but not performed or refused? (CT, X-rays, U/S, labs)? Why? @ -None What meds were considered but not given or refused? Why? @ -None Did you discuss the management of the patient with other professionals (professionals i.e. , PA, SHEARING MACHINE TENDER, lab, RT, psych nurse, web content & social media manager, school bus inspector, teacher, electronic warfare officer, rn case management)? Give summary @ -No Was smoking cessation discussed for >3mins.? @ -No Was critical care preformed (if so, how long)? @ -No Were there social determinants of health that impacted care today? How? (Homelessness, low income, unemployed, alcoholism, drug addiction, transportation, low edu. Level, literacy, decrease access to med. care, senior care, rehab)? @ -No Was there de-escalation of care discussed even if they declined (Discuss DNR or withdrawal of care, Hospice)? DNR status @ -No What co-morbidities impacted this encounter? (DM, HTN, Smoking, COPD, CAD, Cancer, CVA, ARF, Chemo, Hep., AIDS, mental health diagnosis, sleep apnea, morbid obesity)? @ -ASCAD Was patient admitted / discharged? Hospital course, mention meds given and route, prescriptions, significant lab abnormalities, going to OR and other pertinent info. @ -Upon arrival patient was placed into room 24. A thorough history and physical exam was performed. IV is established laboratory studies are conducted. 12-lead EKG was performed. D-dimer is elevated at 2.13. CT is performed which demonstrates no signs of PE. Results are discussed the patient. Continues to have 5 out of 10 pain. He is refusing any pain medications. Recommended admission for cardiology evaluation for which the patient was agreeable. Patient was given written and verbal discharge instructions and discharged home in stable condition Undiagnosed new problem with uncertain prognosis? @ -Yes Drug Therapy requiring intensive monitoring for toxicity (Heparin, Nitro, Insulin, Cardizem)? @ -No Were any procedures done? @ -No Diagnosis/symptom? @ -acute chest pain Acute, or Chronic, or Acute on Chronic? @ -acute Uncomplicated (without systemic symptoms) or Complicated (systemic symptoms)? @ -complicated Side effects of treatment? @ -No Exacerbation, Progression, or Severe Exacerbation? @ -No Poses a threat to life or bodily function? How? (Chest pain, USA, NM, pneumonia, PE, COPD, DKA, ARF, appy, cholecystitis, CVA, Diverticulitis, Homicidal, Suicidal, threat to staff... and all critical care pts) @ -yes Disposition Clinical Impression: Chest pain Disposition: ADMITTED IP TO THIS HOSP Condition: Stable Is patient prescribed a controlled substance at d/c from ED?: No Time of Disposition: 14:25 Decision to Admit Reason: Admit from EC Decision Date: 02/07/23 Decision Time: 14:25
--- NOTE | 2023-02-07 14:22 | CT ---
EXAMINATION TYPE: CT chest angio for PE DATE OF EXAM: 02/07/2023 COMPARISON: 12/09/2022 HISTORY: pe CT DLP: 438.9 mGycm Automated exposure control for dose reduction was used. CONTRAST: Performed with IV Contrast, patient injected with 80 mL of Isovue 370. 3-D postprocess images. There is no mediastinal adenopathy. Thoracic aorta is atheromatous. There is normal contrast opacific ation of the pulmonary arteries. No filling defect. There is subsegmental atelectasis in the lower lung le. There is patchy linear density. No pleura l effusion. Thoracic aorta is intact. No aneurysm or dissection. There is degenerative spurring in the thoracic spine. No fracture. The upper abdominal soft tissues a re intact. IMPRESSION: No evidence of pulmonary embolism. Mild scarring and subsegmental atelectasis in the lower lung field s. No significant change.
[2023-02-07] MEDS ORDERED: NALOXONE 0.4 MG/ML 1 ML VIAL IV PRN (14:25)
[2023-02-07] MEDS ORDERED: ALBUTEROL NEBULIZED 2.5 MG/3 ML INHALATION PRN (15:02)
[2023-02-07] MEDS ORDERED: HEPARIN SODIUM 1,000 UN/ML (10ML VL) IV PRN (15:03)
[2023-02-07] MEDS ORDERED: HEPARIN SOD,PORK IN 0.45% NACL 25,000 UNIT in 0.45% NACL 1 250ML.BAG IV SCH (15:15)
[2023-02-07 16:12] LABS: Basophils % (A) 0 %; Eosinophils # (A) 0.1 k/uL (0-0.7); Eosinophils % (A) 2 %; HCT 42.6 % (39.0-53.0); HGB 13.7 gm/dL (13.0-17.5); Lymphocytes # (A) 1.5 k/uL (1.0-4.8); Lymphocytes % (A) 21 %; MCH 27.2 pg (25.0-35.0); MCHC 32.3 g/dL (31.0-37.0); MCV 84.1 fL (80.0-100.0); Mean Platelet Volume 7.6; Monocytes # (A) 0.4 k/uL (0-1.0); Monocytes % (A) 6 %; Neutrophils # (A) 4.9 k/uL (1.3-7.7); Neutrophils % (A) 69 %; Platelet Count 275 k/uL (150-450); RBC 5.06 m/uL (4.30-5.90); RDW 14.7 % (11.5-15.5); WBC 7.1 k/uL (3.8-10.6)
[2023-02-07 16:17] LABS: Prothrombin Time 10.7 sec (9.0-12.0)
--- NOTE | 2023-02-07 16:44 | HP ---
HISTORY AND PHYSICAL CHIEF COMPLAINT: Chest pain. HISTORY OF PRESENT ILLNESS: This is a 72-year-old gentleman with a past medical history of CAD, COPD, hypertension, hyperlipidemia. He is complaining of chest pain which is felt in the anterior part of chest, radiating to the left shoulder. The pain also worsened with exertion. The patient has taken 8 nitroglycerin since yesterday and because of lack of improvement, the patient was admitted for further evaluation and treatment. The troponins are negative so far. There is no history of any fever, rigors, or chills. D-dimer was elevated but CT angio of chest was negative for any pulmonary embolism. PAST MEDICAL HISTORY: History of CAD, hypertension, hyperlipidemia. Rest of the history and rest of the chart is also reviewed. HOME MEDICATIONS: Reviewed include Nitrostat, rest of the dose and rest of medications reviewed. ALLERGIES: Codeine. FAMILY HISTORY: History of DVT, cancer. SOCIAL HISTORY: Previous history of smoking. REVIEW OF SYSTEMS: A 14-point review of systems is negative as mentioned earlier. OBJECTIVE: VITAL SIGNS: Pulse is 50, blood pressure is 137/97, respirations 20. HEENT: Conjunctivae normal. NECK: No jugular venous distention. CARDIOVASCULAR: S1 and S2 muffled. RESPIRATORY: Breath sounds diminished at the bases. ABDOMEN: Soft, nontender. LEGS: No edema. NERVOUS SYSTEM: No focal deficits. SKIN: No ulcers, rashes, or bleeding. JOINTS: No active deforming arthropathy. LABORATORY DATA: Reviewed. D-dimer is elevated. CT scan reviewed. ASSESSMENT: 1. Chest pain possible unstable angina. 2. Rule out acute myocardial infarction. 3. Elevated D-dimer without any evidence of acute pulmonary embolism. 4. History of coronary artery disease. 5. Chronic obstructive pulmonary disease. 6. Hypertension. 7. Hyperlipidemia. 8. Myocardial infarction. 9. Multiple medical issues. RECOMMENDATIONS: This is a 72-year-old gentleman who presented with multiple complex medical issues, we will monitor the patient closely. We will continue with angina protocol, otherwise resume the home medications once they are confirmed. Cardiology consultation. Rule out myocardial infarction. Prognosis guarded because of multiple complex medical issues. Further recommendations to follow. See orders for details. MMODL / IJN: [id number] /
[2023-02-07] MEDS: IPRATROPIUM 0.5 MG/2.5 ML NEBU INHALATION SCH ×2 (19:27→20:50)
[2023-02-07] MEDS: METOPROLOL TARTRATE 12.5 MG TAB PO SCH (19:56)
[2023-02-07] MEDS: BUDESONIDE 0.5 MG/2 ML NEBU INHALATION SCH (20:50)
[2023-02-07] MEDS ORDERED: MONTELUKAST 10 MG TAB PO SCH (21:00)
[2023-02-08] MEDS ORDERED: BENZOCAINE 20 % GEL 11.9 GM TUBE MM ONE (02:22)
[2023-02-08] MEDS ORDERED: NITROGLYCERIN SL TABS 0.4 MG TAB SUBLINGUAL PRN (02:36)
[2023-02-08] MEDS: NITROGLYCERIN OINT 1 INCH/GM PACKET TOPICAL SCH ×3 (02:45→12:13)
[2023-02-08 04:08] LABS: INR 1.1 (<1.2); Prothrombin Time 11.2 sec (9.0-12.0)
[2023-02-08 08:35] VITALS: BP 104/66; PULSE 68; RESP 18; TEMP 97.9
[2023-02-08] MEDS: METOPROLOL TARTRATE 12.5 MG TAB PO SCH (08:57)
[2023-02-08] MEDS ORDERED: PANTOPRAZOLE 40 MG TABLET PO SCH (09:00)
[2023-02-08] MEDS ORDERED: SPIRONOLACTONE 25 MG TAB PO SCH (09:00)
[2023-02-08] MEDS ORDERED: lisinopriL 10 MG TAB PO SCH (09:00)
[2023-02-08] MEDS ORDERED: ATORVASTATIN 20 MG TAB PO SCH (09:00)
[2023-02-08] MEDS ORDERED: ASPIRIN 81 MG PO SCH (09:00)
[2023-02-08 09:16] LABS: Basophils # (A) 0.06 X 10*3/uL (0.00-0.10); Basophils % (A) 0.8 %; Eosinophils # (A) 0.17 X 10*3/uL (0.04-0.35); Eosinophils % (A) 2.3 %; HCT 38.8 % (39.6-50.0); Immature Grans, Automated 0.5 %; Lymphocytes # (A) 1.86 X 10*3/uL (0.90-5.00); Lymphocytes % (A) 24.8 %; MCH 26.2 pg (27.0-32.0); MCHC 30.9 g/dL (32.0-37.0); MCV 84.7 fL (80.0-97.0); Monocytes # (A) 0.57 X 10*3/uL (0.20-1.00); Monocytes % (A) 7.6 %; NRBC Per 100 WBC 0 /100 WBCS (0.0-0.0); Neutrophils # (A) 4.79 X 10*3/uL (1.80-7.70); Platelet Count 240 X 10*3/uL (140-440); RBC 4.58 X 10*6/uL (4.40-5.60); WBC 7.49 X 10*3/uL (4.50-10.00)
[2023-02-08 09:22] LABS: Basophils # (A) 0.06 X 10*3/uL (0.00-0.10); Basophils % (A) 0.8 %; Eosinophils # (A) 0.17 X 10*3/uL (0.04-0.35); Eosinophils % (A) 2.4 %; HCT 38.2 % (39.6-50.0); HGB 12.3 g/dL (13.0-17.0); Immature Grans, Automated 0.6 %; Lymphocytes # (A) 1.93 X 10*3/uL (0.90-5.00); Lymphocytes % (A) 27.3 %; MCH 26.7 pg (27.0-32.0); MCHC 32.2 g/dL (32.0-37.0); MCV 82.9 fL (80.0-97.0); Monocytes # (A) 0.54 X 10*3/uL (0.20-1.00); Monocytes % (A) 7.6 %; NRBC Per 100 WBC 0 /100 WBCS (0.0-0.0); Neutrophils # (A) 4.33 X 10*3/uL (1.80-7.70); Neutrophils % (A) 61.3 %; Platelet Count 256 X 10*3/uL (140-440); RBC 4.61 X 10*6/uL (4.40-5.60); WBC 7.07 X 10*3/uL (4.50-10.00)
[2023-02-08 09:24] LABS: African American GFR (CKD) 84.7 (60.0-200.0); Anion Gap 11.4 mmol/L (10.00-18.00); Blood Urea Nitrogen 15.3 mg/dL (9.0-27.0); Calcium 9.4 mg/dL (8.7-10.3); Carbon Dioxide 22.4 mmol/L (20.0-27.5); Non-African American GFR(CKD) 73.1 (60.0-200.0); Potassium 4.3 mmol/L (3.5-5.5)
[2023-02-08] MEDS: BUDESONIDE 0.5 MG/2 ML NEBU INHALATION SCH (09:46)
[2023-02-08] MEDS: IPRATROPIUM 0.5 MG/2.5 ML NEBU INHALATION SCH ×2 (09:46→12:47)
--- NOTE | 2023-02-08 10:53 | P.CRDCN ---
History of Present Illness Consult date: 02/08/23 Chief complaint: chest pain History of present illness: The patient is a very pleasant 72-year-old gentleman who is known to my service from before with a past medical history significant for coronary artery disease and known severe aortic insufficiency as well as hypertension and dyslipidemia and carotid atherosclerosis status post left carotid endarterectomy is here for chest discomfort. He was in his usual state of health until yesterday when he started experiencing discomfort in the middle of the chest as a load of discomfort was no radiation and no associated symptoms. No dizziness or lightheadedness and no feeling of heart racing or fluttering and no presyncope or syncope. He underwent further workup including EKG showing sinus rhythm with no significant ST or T-wave abnormalities and also he underwent cardiac enzymes came in to be unremarkable. He is known to have severe aortic insufficiency which is responsible for his chest discomfort. He underwent a heart catheterization in August 2020 and that came in to be showing only mild nonobstructive coronary artery disease. He is in process of having aortic valve replacement but unfortunately he has been struggling with his teeth and his workup, on the teeth. Once that done the patient need to undergo an aortic valve replacement. The examination is remarkable for stable vital signs with a regular rhythm and systolic and diastolic murmur as well as clear breathing sounds bilaterally and no carotid bruit or lower extremities edema Assessment Severe aortic insufficiency Chest discomfort secondary to aortic insufficiency Carotid atherosclerosis Hypertension Dyslipidemia Plan Acute coronary event was ruled out DC heparin The blood pressure has been under excellent control The patient can be discharged home Past Medical History Past Medical History: Coronary Artery Disease (CAD), COPD, Hyperlipidemia, Hypertension, Myocardial Infarction ([place]), Musculoskeletal Disorder Additional Past Medical History / Comment(s): LEFT SHOULDER PAIN, oral surgery Last Myocardial Infarction Date:: 2011 History of Any Multi-Drug Resistant Organisms: None Reported Past Surgical History: Back Surgery, Heart Catheterization, Joint Replacement Additional Past Surgical History / Comment(s): CAROTED ARTERIOGRAM , CAROTID SURGERY (LEFT ) TOTAL RIGHT SHOULDER Past Anesthesia/Blood Transfusion Reactions: No Reported Reaction Past Psychological History: No Psychological Hx Reported Smoking Status: Former smoker Past Alcohol Use History: Occasional Past Drug Use History: None Reported - Past Family History Mother Family Medical History: Cancer, Deep Vein Thrombosis (DVT) Mother Sister(s) Family Medical History: Cancer Father Family Medical History: Chest Pain / Angina, Congestive Heart Failure (CHF), CVA/TIA, Myocardial Infarction ([place]) Medications and Allergies Home Medications Medication Instructions Recorded Confirmed Type Aspirin 81 mg PO DAILY 06/21/14 02/07/23 History Albuterol Sulfate [Ventolin HFA] 2 puff INHALATION RT-Q6H PRN 12/09/22 02/07/23 History Beclomethasone Dipropionate [Qvar 2 puff INHALATION RT-BID 12/09/22 02/07/23 History 80mcg Redihaler] Ipratropium Gay [Atrovent Hfa] 2 puff INHALATION RT-QID 12/09/22 02/07/23 History Metoprolol Tartrate [Lopressor] 12.5 mg PO BID 12/09/22 02/07/23 History Montelukast [Singulair] 10 mg PO HS 12/09/22 02/07/23 History Rosuvastatin [Crestor] 10 mg PO DAILY 12/09/22 02/07/23 History lisinopriL [Zestril] 10 mg PO DAILY 12/09/22 02/07/23 History Pantoprazole [Protonix] 40 mg PO DAILY #30 tab 12/10/22 02/07/23 Rx Ibuprofen [Motrin] 600 mg PO Q6H PRN 02/07/23 02/07/23 History Nitroglycerin Sl Tabs [Nitrostat] 0.4 mg SL Q5M PRN 02/07/23 02/07/23 History Spironolactone [Aldactone] 25 mg PO DAILY 02/07/23 02/07/23 History Allergies Allergy/AdvReac Type Severity Reaction Status Date / Time codeine Allergy Dyspnea & Verified 02/07/23 13:29 Hives Physical Exam Vitals: Vital Signs Temp Pulse Pulse Resp BP BP Pulse Ox 02/08/23 09:47 96 02/08/23 08:00 68 18 02/08/23 07:00 97.9 F 68 18 104/66 93 L 02/08/23 02:34 136/78 97 02/08/23 01:54 97.5 F L 63 16 138/73 96 02/08/23 01:06 60 18 02/07/23 21:03 75 02/07/23 20:53 97 02/07/23 20:52 72 02/07/23 20:00 60 18 02/07/23 19:27 98.1 F 60 18 145/76 97 02/07/23 16:49 55 L 18 02/07/23 15:00 97.3 F L 55 L 18 138/70 98 02/07/23 14:27 97.8 F 50 L 20 137/87 100 02/07/23 11:34 97.8 F 57 L 20 162/70 100 Intake and Output 02/07/23 02/08/23 02/08/23 22:59 06:59 14:59 Intake Total 120 83.833 Balance 120 83.833 Intake: Intake, IV Titration 83.833 Amount Heparin Sod,Pork in 0.45% 83.833 NaCl 25,000 unit In 0.45 % NaCl 1 250ml.bag @ 11. 023 UNITS/KG/HR 10 mls/hr IV .Q24H [facility] Rx#: [id number] Oral 120 0 Other: Voiding Method Toilet Toilet # Voids 2 2 1 Weight 90.718 kg Results 02/08/23 05:50 02/08/23 05:50 Cardiac Enzymes 02/07/23 02/07/23 02/07/23 Range/Units 12:12 13:03 15:37 AST 22 (17-59) U/L Troponin I <0.012 <0.012 (0.000-0.034) ng/mL 02/07/23 02/08/23 Range/Units 17:50 03:41 AST (17-59) U/L Troponin I <0.012 <0.012 (0.000-0.034) ng/mL Coagulation 02/07/23 02/07/23 02/07/23 Range/Units 12:12 15:37 23:42 PT 10.3 10.7 (9.0-12.0) sec APTT 23.2 23.0 30.8 H (22.0-30.0) sec 02/08/23 02/08/23 Range/Units 03:41 05:50 PT 11.2 (9.0-12.0) sec APTT 64.1 H (22.0-30.0) sec CBC 02/07/23 02/07/23 02/08/23 Range/Units 12:12 15:37 03:41 WBC 6.7 7.1 7.07 (3.8-10.6) k/uL RBC 4.85 5.06 4.61 (4.30-5.90) m/uL Hgb 13.2 13.7 12.3 L (13.0-17.5) gm/dL Hct 39.5 42.6 38.2 L (39.0-53.0) % Plt Count 256 275 256 (150-450) k/uL 02/08/23 Range/Units 05:50 WBC 7.49 (3.8-10.6) k/uL RBC 4.58 (4.30-5.90) m/uL Hgb 12.0 L (13.0-17.5) gm/dL Hct 38.8 L (39.0-53.0) % Plt Count 240 (150-450) k/uL Comprehensive Metabolic Panel 02/07/23 02/08/23 Range/Units 13:03 05:50 Sodium 138 137 (137-145) mmol/L Potassium 4.4 4.3 (3.5-5.1) mmol/L Chloride 104 103 (98-107) mmol/L Carbon Dioxide 22 22.4 (22-30) mmol/L BUN 17 15.3 (9-20) mg/dL Creatinine 0.95 1.0 (0.66-1.25) mg/dL Glucose 92 105 (74-99) mg/dL Calcium 9.7 9.4 (8.4-10.2) mg/dL AST 22 (17-59) U/L ALT 26 (4-49) U/L Alkaline Phosphatase 43 (38-126) U/L Total Protein 7.5 (6.3-8.2) g/dL Albumin 4.4 (3.5-5.0) g/dL Current Medications Generic Name Dose Route Start Last Admin Trade Name Freq PRN Reason Stop Dose Admin Albuterol Sulfate 2.5 mg 02/07/23 15:02 Albuterol Nebulized 2.5 Mg/3 Ml INHALATION RT-Q6H PRN Shortness Of Breath Aspirin 81 mg 02/08/23 09:00 02/08/23 08:57 Aspirin 81 Mg PO 81 mg DAILY [facility] Administration Atorvastatin Calcium 20 mg 02/08/23 09:00 02/08/23 08:57 Atorvastatin 20 Mg Tab PO 20 mg DAILY [facility] Administration Budesonide 0.5 mg 02/07/23 20:00 02/08/23 09:46 Budesonide 0.5 Mg/2 Ml Nebu INHALATION Not Given RT-BID [facility] Heparin Sodium (Porcine) 0 unit 02/07/23 15:03 02/08/23 00:37 Heparin Sodium 1,000 Un/Ml (10ml Vl) IV 4,000 unit PER PROTOCOL PRN Administration Low PTT Protocol Heparin Sodium/Sodium Chloride 250 mls @ 10 mls/hr 02/07/23 15:15 02/08/23 00:35 25,000 unit/ Sodium Chloride IV 14.023 units/kg/hr .Q24H [facility] 12.721 mls/hr Titration Protocol 11.023 UNITS/KG/HR Ipratropium Gay 0.5 mg 02/07/23 16:00 02/08/23 09:46 Ipratropium 0.5 Mg/2.5 Ml Nebu INHALATION Not Given RT-QID [facility] Lisinopril 10 mg 02/08/23 09:00 02/08/23 08:58 Lisinopril 10 Mg Tab PO [address] [facility] Administration Metoprolol Tartrate 12.5 mg 02/07/23 21:00 02/08/23 08:57 Metoprolol Tartrate 12.5 Mg Tab PO 12.5 mg BID RAJAN Administration Montelukast Sodium 10 mg 02/07/23 21:00 02/07/23 19:56 Montelukast 10 Mg Tab PO 10 mg HS [facility]JAN Administration Naloxone HCl 0.2 mg 02/07/23 14:25 Naloxone 0.4 Mg/Ml 1 Ml Vial IV Q2M PRN Opioid Reversal Nitroglycerin 0.5 inch 02/08/23 02:45 02/08/23 06:32 Nitroglycerin Oint 1 Inch/Gm Packet TOPICAL Not Given Q6HR [facility] Nitroglycerin 0.4 mg 02/08/23 02:36 Nitroglycerin Sl Tabs 0.4 Mg Tab SUBLINGUAL Q5M PRN Chest Pain Pantoprazole Sodium 40 mg 02/08/23 09:00 02/08/23 08:57 Pantoprazole 40 Mg Tablet PO 40 mg DAILY RAJAN Administration Spironolactone 25 mg 02/08/23 09:00 02/08/23 08:57 Spironolactone 25 Mg Tab PO 25 mg DAILY [facility]JAN Administration Intake and Output 02/07/23 02/08/23 02/08/23 22:59 06:59 14:59 Intake Total 120 83.833 Balance 120 83.833 Intake: Intake, IV Titration 83.833 Amount Heparin Sod,Pork in 0.45% 83.833 NaCl 25,000 unit In 0.45 % NaCl 1 250ml.bag @ 11. 023 UNITS/KG/HR 10 mls/hr IV .Q24H [facility] Rx#: [id number] Oral 120 0 Other: Voiding Method Toilet Toilet # Voids 2 2 1 Weight 90.718 kg 02/08/23 05:50 02/08/23 05:50
--- NOTE | 2023-02-08 13:14 | P.DS ---
Providers Date of admission: 02/07/23 14:25 Expected date of discharge: 02/08/23 Attending physician: Trang Forbes Consults: 02/07/23 14:25 Consult Physician Urgent Consulting Provider: [facility] Consult Reason/Comments: acute chest pain Do you want consulting provider notified?: Yes Primary care physician: Jean Marie Vences Hospital Course: Discharge diagnoses; Severe aortic insufficiency Chest discomfort secondary to aortic insufficiency Carotid atherosclerosis Hypertension Dyslipidemia COPD Hospital course; The patient is a very pleasant 72-year-old gentleman past medical history significant for coronary artery disease and known severe aortic insufficiency as well as hypertension and dyslipidemia and carotid atherosclerosis status post left carotid endarterectomy is here for chest discomfort. He was in his usual state of health until yesterday when he started experiencing discomfort in the middle of the chest as a load of discomfort was no radiation and no associated symptoms. No dizziness or lightheadedness and no feeling of heart racing or fluttering and no presyncope or syncope. He underwent further workup including EKG showing sinus rhythm with no significant ST or T-wave abnormalities and also he underwent cardiac enzymes came in to be unremarkable. Patient was admitted to hospitalist service, cardiology were consulted, patient cardiac workup was negative. CT chest was negative for PE. Cardiology cleared the patient for discharge PHYSICAL EXAMINATION: GENERAL: The patient is alert and oriented x3, not in any acute distress. Well developed, well nourished. HEENT: Pupils are round and equally reacting to light. EOMI. No scleral icterus. No conjunctival pallor. Normocephalic, atraumatic. No pharyngeal erythema. No thyromegaly. CARDIOVASCULAR: S1 and S2 present. No murmurs, rubs, or gallops. PULMONARY: Chest is clear to auscultation, no wheezing or crackles. ABDOMEN: Soft, nontender, nondistended, normoactive bowel sounds. No palpable organomegaly. MUSCULOSKELETAL: No joint swelling or deformity. EXTREMITIES: No cyanosis, clubbing, or pedal edema. NEUROLOGICAL: Gross neurological examination did not reveal any focal deficits. SKIN: No rashes. Patient Condition at Discharge: Stable Plan - Discharge Summary Discharge Rx Participant: No New Discharge Prescriptions: Continue Aspirin 81 mg PO DAILY Ipratropium Royal [Atrovent Hfa] 2 puff INHALATION RT-QID Montelukast [Singulair] 10 mg PO HS Rosuvastatin [Crestor] 10 mg PO DAILY Nitroglycerin Sl Tabs [Nitrostat] 0.4 mg SL Q5M PRN PRN Reason: Chest Pain Spironolactone [Aldactone] 25 mg PO DAILY Albuterol Sulfate [Ventolin HFA] 2 puff INHALATION RT-Q6H PRN PRN Reason: Shortness Of Breath lisinopriL [Zestril] 10 mg PO DAILY Beclomethasone Dipropionate [Qvar 80mcg Redihaler] 2 puff INHALATION RT-BID Metoprolol Tartrate [Lopressor] 12.5 mg PO BID Pantoprazole [Protonix] 40 mg PO DAILY #30 tab Ibuprofen [Motrin] 600 mg PO Q6H PRN PRN Reason: Pain Discharge Medication List Aspirin 81 mg PO DAILY 06/21/14 [History] Albuterol Sulfate [Ventolin HFA] 2 puff INHALATION RT-Q6H PRN 12/09/22 [History] Beclomethasone Dipropionate [Qvar 80mcg Redihaler] 2 puff INHALATION RT-BID 12/09/22 [History] Ipratropium Royal [Atrovent Hfa] 2 puff INHALATION RT-QID 12/09/22 [History] Metoprolol Tartrate [Lopressor] 12.5 mg PO BID 12/09/22 [History] Montelukast [Singulair] 10 mg PO HS 12/09/22 [History] Rosuvastatin [Crestor] 10 mg PO DAILY 12/09/22 [History] lisinopriL [Zestril] 10 mg PO DAILY 12/09/22 [History] Pantoprazole [Protonix] 40 mg PO DAILY #30 tab 12/10/22 [Rx] Ibuprofen [Motrin] 600 mg PO Q6H PRN 02/07/23 [History] Nitroglycerin Sl Tabs [Nitrostat] 0.4 mg SL Q5M PRN 02/07/23 [History] Spironolactone [Aldactone] 25 mg PO DAILY 02/07/23 [History] Follow up Appointment(s)/Referral(s): Gustavo Garcia MD [STAFF PHYSICIAN] - 02/19/23 (please keep follow up. ) Jean Marie Vences MD [Primary Care Provider] - 1-2 days Discharge Disposition: HOME SELF-CARE
== END 2023-02-08 12:50 | disposition home or self-care (01) ==
LOC: EC 11:33 → 6NMEDSUR 14:25
PROVIDERS: ADMIT Hospitalist; ATTEND Hospitalist
DX: I35.1 Nonrheumatic aortic (valve) insufficiency (principal); I65.29 Occlusion and stenosis of unspecified carotid artery; I10 Essential (primary) hypertension; E78.5 Hyperlipidemia, unspecified; J44.9 Chronic obstructive pulmonary disease, unspecified; Z98.890 Other specified postprocedural states; I25.10 Atherosclerotic heart disease of native coronary artery without angina pectoris; I25.2 Old myocardial infarction; Z96.611 Presence of right artificial shoulder joint; Z87.891 Personal history of nicotine dependence; Z82.49 Family history of ischemic heart disease and other diseases of the circulatory system; Z80.9 Family history of malignant neoplasm, unspecified; Z82.3 Family history of stroke; Z79.82 Long term (current) use of aspirin; Z79.899 Other long term (current) drug therapy
CPT/HCPCS: 96365; 96366 ×2; 99285; 36415; 94640; 94760; 93005; 85379; 80053; 80048; 83735; 84484 ×2; 85025 ×2; 85610 ×2; 85730 ×2; 71046; 71275; G0378 ×2; J1644 ×2; Q9967

== ENCOUNTER 2024-01-08 21:11 | Emergency (ER) | payer MEDICARE ==
[2024-01-08 21:54] VITALS: TEMP 98.7
--- NOTE | 2024-01-08 21:55 | ED ---
SOB HPI - General Source: patient, RN notes reviewed, old records reviewed Mode of arrival: ambulatory Limitations: no limitations <Matt Davis - Last Filed: 01/08/24 23:24> <Casey Jay - Last Filed: 01/09/24 00:39> - General Chief Complaint: Shortness of Breath Stated Complaint: Syncope,SOB - History of Present Illness Initial Comments: This is a 73 male to the ED co pain SOB, weak , inc BP, feeling significantly SOB. (Matt Davis) 3-year-old male with a past medical history significant for COPD presenting to the ED with a chief complaint of dyspnea. Patient notes cough, fatigue, body aches over the past few days. States has been increasingly short of breath over the past few days as well prompting presentation to the ED for further evaluation. Denies chest pain. No other complaints at this time. (Casey Jay) - Related Data Home Medications Medication Instructions Recorded Confirmed Aspirin 81 mg PO DAILY 06/21/14 02/07/23 Albuterol Sulfate [Ventolin HFA] 2 puff INHALATION RT-Q6H PRN 12/09/22 02/07/23 Beclomethasone Dipropionate [Qvar 2 puff INHALATION RT-BID 12/09/22 02/07/23 80mcg Redihaler] Ipratropium [place] [Atrovent Hfa] 2 puff INHALATION RT-QID 12/09/22 02/07/23 Metoprolol Tartrate [Lopressor] 12.5 mg PO BID 12/09/22 02/07/23 Montelukast [Singulair] 10 mg PO HS 12/09/22 02/07/23 Rosuvastatin [Crestor] 10 mg PO DAILY 12/09/22 02/07/23 lisinopriL [Zestril] 10 mg PO DAILY 12/09/22 02/07/23 Ibuprofen [Motrin] 600 mg PO Q6H PRN 02/07/23 02/07/23 Nitroglycerin Sl Tabs [Nitrostat] 0.4 mg SL Q5M PRN 02/07/23 02/07/23 Spironolactone [Aldactone] 25 mg PO DAILY 02/07/23 02/07/23 Previous Rx's Medication Instructions Recorded Pantoprazole [Protonix] 40 mg PO DAILY #30 tab 12/10/22 Allergies Allergy/AdvReac Type Severity Reaction Status Date / Time codeine Allergy Dyspnea & Verified 01/08/24 21:50 Hives Review of Systems ROS Other: All systems not noted in ROS Statement are negative. <Matt Davis - Last Filed: 01/08/24 23:24> ROS Other: All systems not noted in ROS Statement are negative. <Casey Jay - Last Filed: 01/09/24 00:39> ROS Statement: Those systems with pertinent positive or pertinent negative responses have been documented in the HPI. Past Medical History Past Medical History: Coronary Artery Disease (CAD), COPD, Hyperlipidemia, Hypertension, Myocardial Infarction (MO), Musculoskeletal Disorder Additional Past Medical History / Comment(s): LEFT SHOULDER PAIN, oral surgery Last Myocardial Infarction Date:: 2011 History of Any Multi-Drug Resistant Organisms: None Reported Past Surgical History: Back Surgery, Heart Catheterization, Joint Replacement Additional Past Surgical History / Comment(s): CAROTED ARTERIOGRAM , CAROTID SURGERY (LEFT ) TOTAL RIGHT SHOULDER Past Anesthesia/Blood Transfusion Reactions: No Reported Reaction Past Psychological History: No Psychological Hx Reported Smoking Status: Former smoker Past Alcohol Use History: Occasional Past Drug Use History: None Reported - Past Family History Mother Family Medical History: Cancer, Deep Vein Thrombosis (DVT) Mother Sister(s) Family Medical History: Cancer Father Family Medical History: Chest Pain / Angina, Congestive Heart Failure (CHF), CVA/TIA, Myocardial Infarction (MO) <Matt Davis - Last Filed: 01/08/24 23:24> General Exam Limitations: no limitations General appearance: alert, in no apparent distress Head exam: Present: atraumatic, normocephalic, normal inspection Eye exam: Present: normal appearance, PERRL, EOMI. Absent: scleral icterus, conjunctival injection, periorbital swelling ENT exam: Present: normal exam, mucous membranes moist Neck exam: Present: normal inspection. Absent: tenderness, meningismus, lymphadenopathy Respiratory exam: Present: normal lung sounds bilaterally. Absent: respiratory distress, wheezes, rales, rhonchi, stridor Cardiovascular Exam: Present: regular rate, normal rhythm, normal heart sounds. Absent: systolic murmur, diastolic murmur, rubs, gallop, clicks GI/Abdominal exam: Present: soft, normal bowel sounds. Absent: distended, tenderness, guarding, rebound, rigid Extremities exam: Present: normal inspection, full ROM, normal capillary refill. Absent: tenderness, pedal edema, joint swelling, calf tenderness Back exam: Present: normal inspection Neurological exam: Present: alert, oriented X3, CN II-XII intact Psychiatric exam: Present: normal affect, normal mood Skin exam: Present: warm, dry, intact, normal color. Absent: rash <Matt Davis - Last Filed: 01/08/24 23:24> General appearance: alert, in no apparent distress Head exam: Present: atraumatic, normocephalic, normal inspection Eye exam: Present: normal appearance, PERRL, EOMI Neck exam: Present: normal inspection Respiratory exam: Present: wheezes Cardiovascular Exam: Present: regular rate, systolic murmur. Absent: normal heart sounds <Casey Jay - Last Filed: 01/09/24 00:39> Course <Matt Davis - Last Filed: 01/08/24 23:24> Vital Signs 01/08/24 01/08/24 01/09/24 21:44 23:43 00:02 Temperature 98.7 F Pulse Rate 100 85 Respiratory 26 H Rate Blood Pressure 168/83 O2 Sat by Pulse 93 L 94 L Oximetry 01/09/24 01/09/24 00:11 00:23 Temperature Pulse Rate 87 105 H Respiratory 16 Rate Blood Pressure 161/83 O2 Sat by Pulse 97 Oximetry - Reevaluation(s) Reevaluation #1: 01/08/24 21:[address] Davis (Matt Davis) Medical Decision Making - Lab Data Result diagrams: 01/08/24 22:01 01/08/24 22:01 - EKG Data -: EKG Interpreted by Me (EKG is sinus 94 DC 130 QRS 93 QTc 424) <Matt Davis - Last Filed: 01/08/24 23:24> - Lab Data Result diagrams: 01/08/24 22:01 01/08/24 22:01 - EKG Data -: EKG Interpreted by Me <Casey Jay - Last Filed: 01/09/24 00:39> - Medical Decision Making Was pt. sent in by a medical professional or institution (, TRACY, COMMUNICATIONS REPRESENTATIVE, urgent care, hospital, or shelter...) When possible be specific @ -No Did you speak to anyone other than the patient for history (EMS, parent, family, police, friend...)? What history was obtained from this source @ -No Did you review nursing and triage notes (agree or disagree)? Why? @ -I reviewed and agree with nursing and triage notes Were old charts reviewed (outside hosp., previous admission, EMS record, old EKG, old radiological studies, urgent care reports/EKG's, shelter records)? Report findings @ -No old charts were reviewed Differential Diagnosis (chest pain, altered mental status, abdominal pain women, abdominal pain men, vaginal bleeding, weakness, fever, dyspnea, syncope, headache, dizziness, GI bleed, back pain, seizure, CVA, palpatations, mental health, musculoskeletal)? @ -Differential Dyspnea: Coronary syndrome, arrhythmia, tamponade, asthma, COPD, pulmonary embolism, pneumonia, pneumothorax, pulmonary effusion, anaphylaxis, diabetic ketoacidosis, flailed chest, pulmonary contusion, diaphragmatic rupture, anemia, neuro muscular, this is not meant to be an all-inclusive list. EKG interpreted by me (3pts min.). @ -As above X-rays interpreted by me (1pt min.). @ -Chest x-ray interpreted me showing no evidence of acute finding. CT interpreted by me (1pt min.). @ -None done U/S interpreted by me (1pt. min.). @ -None done What testing was considered but not performed or refused? (CT, X-rays, U/S, labs)? Why? @ -None What meds were considered but not given or refused? Why? @ -None Did you discuss the management of the patient with other professionals (professionals i.e. TRACY Stiles, COMMUNICATIONS REPRESENTATIVE, lab, RT, psych nurse, director social service, machine shop helper, teacher, court security officer, leather case finisher)? Give summary @ -No Was smoking cessation discussed for >3mins.? @ -No Was critical care preformed (if so, how long)? @ -No Were there social determinants of health that impacted care today? How? (Home lessness, low income, unemployed, alcoholism, drug addiction, transportation, low edu. Level, literacy, decrease access to med. care, longterm, rehab)? @ -No Was there de-escalation of care discussed even if they declined (Discuss DNR or withdrawal of care, Hospice)? DNR status @ -No What co-morbidities impacted this encounter? (DM, HTN, Smoking, COPD, CAD, Cancer, CVA, ARF, Chemo, Hep., AIDS, mental health diagnosis, sleep apnea, morbid obesity)? @ -COPD Was patient admitted / discharged? Hospital course, mention meds given and route, prescriptions, significant lab abnormalities, going to OR and other pertinent info. @ -Discharge 70-year-old male presenting to the ED with a chief complaint of dyspnea. Laboratory studies all largely unremarkable including CBC, CMP, coagulation studies, BNP, troponin. Serology panel is however positive for influenza A. Chest x-ray revealed no findings consistent with pneumonia or other acute findings. Patient provided a breathing treatment here with significant improvement of symptoms. Provided steroids in the ED as well. Discharged home in stable condition. Discussed return precautions with patient and family who verbalized agreement. Undiagnosed new problem with uncertain prognosis? @ -No Drug Therapy requiring intensive monitoring for toxicity (Heparin, Nitro, Insulin, Cardizem)? @ -No Were any procedures done? @ -No Diagnosis/symptom? @ -Influenza A, COPD exacerbation Acute, or Chronic, or Acute on Chronic? @ -Acute Uncomplicated (without systemic symptoms) or Complicated (systemic symptoms)? @ -Complicated Side effects of treatment? @ -No Exacerbation, Progression, or Severe Exacerbation? @ -No Poses a threat to life or bodily function? How? (Chest pain, USA, [place], pneumonia, PE, COPD, DKA, ARF, appy, cholecystitis, CVA, Diverticulitis, Homicidal, Suicidal, threat to staff... and all critical care pts) @ -Unlikely (Casey Jay) - Lab Data Lab Results 01/08/24 01/08/24 01/08/24 Range/Units 22:01 22:01 22:01 WBC 4.6 (3.8-10.6) k/uL RBC 5.18 (4.30-5.90) m/uL Hgb 13.3 (13.0-17.5) gm/dL Hct 40.9 (39.0-53.0) % MCV 79.0 L (80.0-100.0) fL MCH 25.7 (25.0-35.0) pg MCHC 32.6 (31.0-37.0) g/dL RDW 15.6 H (11.5-15.5) % Plt Count 154 (150-450) k/uL MPV 7.6 Neutrophils % 81 % Lymphocytes % 10 % Monocytes % 6 % Eosinophils % 1 % Basophils % 1 % Neutrophils # 3.7 (1.3-7.7) k/uL Lymphocytes # 0.5 L (1.0-4.8) k/uL Monocytes # 0.3 (0-1.0) k/uL Eosinophils # 0.0 (0-0.7) k/uL Basophils # 0.0 (0-0.2) k/uL PT 10.9 (10.0-12.5) sec INR 1.0 (<1.2) APTT 27.3 (22.0-30.0) sec Sodium 137 (137-145) mmol/L Potassium 3.8 (3.5-5.1) mmol/L Chloride 103 (98-107) mmol/L Carbon Dioxide 22 (22-30) mmol/L Anion Gap 12 mmol/L BUN 9 (9-20) mg/dL Creatinine 0.83 (0.66-1.25) mg/dL Est GFR (CKD-EPI)AfAm >90 (>60 ml/min/1.73 sqM) Est GFR (CKD-EPI)NonAf 87 (>60 ml/min/1.73 sqM) Glucose 95 (74-99) mg/dL Calcium 8.8 (8.4-10.2) mg/dL Magnesium 1.8 (1.6-2.3) mg/dL Total Bilirubin 0.6 (0.2-1.3) mg/dL AST 72 H (17-59) U/L ALT 42 (4-49) U/L Alkaline Phosphatase 55 (38-126) U/L Troponin I (0.000-0.034) ng/mL NT-Pro-B Natriuret Pep 430 pg/mL Total Protein 7.5 (6.3-8.2) g/dL Albumin 4.5 (3.5-5.0) g/dL Influenza Type A (PCR) (Not Detectd) Influenza Type B (PCR) (Not Detectd) RSV (PCR) (Not Detectd) SARS-CoV-2 (PCR) (Not Detectd) 01/08/24 01/08/24 Range/Units 22:01 22:01 WBC (3.8-10.6) k/uL RBC (4.30-5.90) m/uL Hgb (13.0-17.5) gm/dL Hct (39.0-53.0) % MCV (80.0-100.0) fL MCH (25.0-35.0) pg MCHC (31.0-37.0) g/dL RDW (11.5-15.5) % Plt Count (150-450) k/uL MPV Neutrophils % % Lymphocytes % % Monocytes % % Eosinophils % % Basophils % % Neutrophils # (1.3-7.7) k/uL Lymphocytes # (1.0-4.8) k/uL Monocytes # (0-1.0) k/uL Eosinophils # (0-0.7) k/uL Basophils # (0-0.2) k/uL PT (10.0-12.5) sec INR (<1.2) APTT (22.0-30.0) sec Sodium (137-145) mmol/L Potassium (3.5-5.1) mmol/L Chloride (98-107) mmol/L Carbon Dioxide (22-30) mmol/L Anion Gap mmol/L BUN (9-20) mg/dL Creatinine (0.66-1.25) mg/dL Est GFR (CKD-EPI)AfAm (>60 ml/min/1.73 sqM) Est GFR (CKD-EPI)NonAf (>60 ml/min/1.73 sqM) Glucose (74-99) mg/dL Calcium (8.4-10.2) mg/dL Magnesium (1.6-2.3) mg/dL Total Bilirubin (0.2-1.3) mg/dL AST (17-59) U/L ALT (4-49) U/L Alkaline Phosphatase (38-126) U/L Troponin I <0.012 (0.000-0.034) ng/mL NT-Pro-B Natriuret Pep pg/mL Total Protein (6.3-8.2) g/dL Albumin (3.5-5.0) g/dL Influenza Type A (PCR) Detected A (Not Detectd) Influenza Type B (PCR) Not Detected (Not Detectd) RSV (PCR) Not Detected (Not Detectd) SARS-CoV-2 (PCR) Not Detected (Not Detectd) Disposition <Matt Davis - Last Filed: 01/08/24 23:24> Is patient prescribed a controlled substance at d/c from ED?: No Time of Disposition: 00:15 <Casey Jay - Last Filed: 01/09/24 00:39> Clinical Impression: Influenza A, COPD exacerbation Disposition: HOME SELF-CARE Condition: Good Additional Instructions: Please return to the Emergency Department if symptoms worsen or any other concerns. Please follow-up with your fish seiner as scheduled. Referrals: Evelyn Vallejo [Primary Care Provider] - 1-2 days
[2024-01-08 22:29] LABS: Basophils % (A) 1 %; Eosinophils % (A) 1 %; HCT 40.9 % (39.0-53.0); HGB 13.3 gm/dL (13.0-17.5); Lymphocytes # (A) 0.5 k/uL (1.0-4.8); Lymphocytes % (A) 10 %; MCH 25.7 pg (25.0-35.0); MCHC 32.6 g/dL (31.0-37.0); Mean Platelet Volume 7.6; Monocytes # (A) 0.3 k/uL (0-1.0); Monocytes % (A) 6 %; Neutrophils # (A) 3.7 k/uL (1.3-7.7); Neutrophils % (A) 81 %; Platelet Count 154 k/uL (150-450); RBC 5.18 m/uL (4.30-5.90); RDW 15.6 % (11.5-15.5); WBC 4.6 k/uL (3.8-10.6)
[2024-01-08 22:46] LABS: Partial Thromboplastin Time 27.3 sec (22.0-30.0); Prothrombin Time 10.9 sec (10.0-12.5)
[2024-01-08 22:49] LABS: ALT 42 U/L (4-49); AST 72 U/L (17-59); African American GFR (CKD) >90 (>60 ml/min/1.73 sqM); Albumin 4.5 g/dL (3.5-5.0); Alkaline Phosphatase 55 U/L (38-126); Anion Gap 12 mmol/L; Blood Urea Nitrogen 9 mg/dL (9-20); Calcium 8.8 mg/dL (8.4-10.2); Carbon Dioxide 22 mmol/L (22-30); Chloride 103 mmol/L (98-107); Glucose 95 mg/dL (74-99); Magnesium 1.8 mg/dL (1.6-2.3); Non-African American GFR(CKD) 87 (>60 ml/min/1.73 sqM); Potassium 3.8 mmol/L (3.5-5.1); Sodium 137 mmol/L (137-145); Total Bilirubin 0.6 mg/dL (0.2-1.3); Total Protein 7.5 g/dL (6.3-8.2)
[2024-01-08 22:58] LABS: NT-Pro-B-Type Natriuretic Pept 430 pg/mL
--- NOTE | 2024-01-08 23:01 | XR ---
EXAMINATION TYPE: XR chest 1V portable DATE OF EXAM: 01/08/2024 COMPARISON: Prior chest x-ray April 09, 2023 HISTORY: Shortness of breath TECHNIQUE: Single frontal view of the chest is obtained. FINDINGS: Linear opacity left lung base redemonstrated. There is no suspicious new focal air space op acity, pleural effusion, or pneumothorax seen. The cardiac silhouette size is stable and within norm al limits. Surgical change right shoulder is partially imaged. IMPRESSION: Left basilar linear scarring and/or atelectasis. No new acute pulmonary infiltrate.
[2024-01-09] MEDS: IPRATROPIUM-ALBUTEROL 3 ML NEB INHALATION STA
[2024-01-09] MEDS: SODIUM CHLORIDE 0.9% 1,000 ML IV STA (00:08)
[2024-01-09] MEDS: methylPREDNISolone SOD SUCCI 125 MG/2 ML VIAL IM ONE (00:18)
[2024-01-09 00:49] VITALS: BP 161/83; PULSE 105; RESP 16
== END 2024-01-09 00:54 | disposition home or self-care (01) ==
LOC: EC 21:11
DX: J44.1 Chronic obstructive pulmonary disease with (acute) exacerbation (principal); J10.1 Influenza due to other identified influenza virus with other respiratory manifestations; I10 Essential (primary) hypertension; I25.10 Atherosclerotic heart disease of native coronary artery without angina pectoris; I25.2 Old myocardial infarction; E78.5 Hyperlipidemia, unspecified; Z20.822 Contact with and (suspected) exposure to COVID-19; Z79.82 Long term (current) use of aspirin; Z79.51 Long term (current) use of inhaled steroids; Z79.899 Other long term (current) drug therapy; Z88.5 Allergy status to narcotic agent; Z87.891 Personal history of nicotine dependence
CPT/HCPCS: 36415; 71045; 80053; 83735; 83880; 84484; 85025; 85610; 85730; 87636; 93005; 94640; 96372; 99285

== ENCOUNTER 2024-05-16 16:44 | Inpatient (IN) | payer MEDICARE ==
[2024-05-16] MEDS: HEPARIN SOD,PORK IN 0.45% NACL 25,000 UNIT in 0.45% NACL 1 250ML.BAG IV SCH (17:52)
--- NOTE | 2024-05-16 19:07 | ED ---
Chest Pain HPI - General Chief Complaint: Chest Pain Stated Complaint: Chest Pains Time Seen by Provider: 05/16/24 17:00 Source: EMS, RN notes reviewed, old records reviewed Mode of arrival: EMS Limitations: no limitations - History of Present Illness Initial Comments: This is a 73-year-old male who presents to the emergency department from [facility]. Patient came in after he started having chest pain took some nitroglycerin passed out 3 different times and his eventually showed up at the emergency department. They did blood work and CAT scan and he had 2 serial troponin enzymes that were normal. Patient states he gave nitroglycerin and he did feel much better and they started him on a heparin drip as well. They wanted the patient to come to this facility because the patient has physicians here that he has seen in the past. Patient states currently he is not having any chest pain. - Related Data Home Medications Medication Instructions Recorded Confirmed Aspirin 81 mg PO DAILY 06/21/14 05/16/24 Albuterol Sulfate [Ventolin HFA] 2 puff INHALATION RT-Q6H PRN 12/09/22 05/16/24 Beclomethasone Dipropionate [Qvar 2 puff INHALATION RT-BID 12/09/22 05/16/24 80mcg Redihaler] Ipratropium [place] [Atrovent Hfa] 2 puff INHALATION RT-BID 12/09/22 05/16/24 Metoprolol Tartrate [Lopressor] 12.5 mg PO BID 12/09/22 05/16/24 Montelukast [Singulair] 10 mg PO HS 12/09/22 05/16/24 lisinopriL [Zestril] 10 mg PO DAILY 12/09/22 05/16/24 Nitroglycerin Sl Tabs [Nitrostat] 0.4 mg SL Q5M PRN 02/07/23 05/16/24 Spironolactone [Aldactone] 25 mg PO DAILY 02/07/23 05/16/24 Ezetimibe [Zetia] 10 mg PO DAILY 05/16/24 05/16/24 Allergies Allergy/AdvReac Type Severity Reaction Status Date / Time codeine Allergy Dyspnea & Verified 05/16/24 18:52 Hives Review of Systems ROS Statement: Those systems with pertinent positive or pertinent negative responses have been documented in the HPI. ROS Other: All systems not noted in ROS Statement are negative. Past Medical History Past Medical History: Coronary Artery Disease (CAD), COPD, Hyperlipidemia, Hypertension, Myocardial Infarction (LA), Musculoskeletal Disorder Additional Past Medical History / Comment(s): LEFT SHOULDER PAIN, oral surgery Last Myocardial Infarction Date:: 2011 History of Any Multi-Drug Resistant Organisms: None Reported Past Surgical History: Back Surgery, Heart Catheterization, Joint Replacement Additional Past Surgical History / Comment(s): CAROTED ARTERIOGRAM , CAROTID SURGERY (LEFT ) TOTAL RIGHT SHOULDER Past Anesthesia/Blood Transfusion Reactions: No Reported Reaction Past Psychological History: No Psychological Hx Reported Smoking Status: Former smoker Past Alcohol Use History: Occasional Past Drug Use History: None Reported - Past Family History Mother Family Medical History: Cancer, Deep Vein Thrombosis (DVT) Mother Sister(s) Family Medical History: Cancer Father Family Medical History: Chest Pain / Angina, Congestive Heart Failure (CHF), CVA/TIA, Myocardial Infarction (LA) General Exam - General Exam Comments Initial Comments: GENERAL: Patient is well-developed and well-nourished. Patient is nontoxic and well- hydrated and is in no acute distress. ENT: Neck is soft and supple. No significant lymphadenopathy is noted. Oropharynx is clear. Moist mucous membranes. Neck has full range of motion without eliciting any pain. EYES: The sclera were anicteric and conjunctiva were pink and moist. Extraocular movements were intact and pupils were equal round and reactive to light. Eyelids were unremarkable. PULMONARY: Unlabored respirations. Good breath sounds bilaterally. No audible rales rhonchi or wheezing was noted. CARDIOVASCULAR: There is a regular rate and rhythm without any murmurs gallops or rubs. ABDOMEN: Soft and nontender with normal bowel sounds. SKIN: Skin is clear with no lesions or rashes and otherwise unremarkable. NEUROLOGIC: Patient is alert and oriented x3. Cranial nerves II through XII are grossly intact. Motor and sensory are also intact. Normal speech, volume and content. Symmetrical smile. MUSCULOSKELETAL: Normal extremities with adequate strength and full range of motion. No lower extremity swelling or edema. No calf tenderness. LYMPHATICS: No significant lymphadenopathy is noted PSYCHIATRIC: Normal psychiatric evaluation. Limitations: no limitations Course Vital Signs 05/16/24 16:50 Temperature 98.1 F Pulse Rate 56 L Respiratory 18 Rate Blood Pressure 146/74 O2 Sat by Pulse 93 L Oximetry Chest Pain MDM - [facility] EKG is interpreted by myself. EKG shows sinus bradycardia 57 bpm. OK interval 161 QRS is 94 QT intervals 420 QTc is 413. Was pt. sent in by a medical professional or institution (TRACY Stiles, BEAD PICKER, urgent care, hospital, or penitentiary...) When possible be specific @ -Was sent to us by [facility] emergency department Did you speak to anyone other than the patient for history (EMS, parent, family, police, friend...)? What history was obtained from this source @ -The ER physician at [facility] called prior to the patient's arrival for transfer Did you review nursing and triage notes (agree or disagree)? Why? @ -I reviewed and agree with nursing and triage notes Were old charts reviewed (outside hosp., previous admission, EMS record, old EKG, old radiological studies, urgent care reports/EKG's, penitentiary records)? Report findings @ -I reviewed all outside charts and radiological studies from the other facility on arrival Differential Diagnosis (chest pain, altered mental status, abdominal pain women, abdominal pain men, vaginal bleeding, weakness, fever, dyspnea, syncope, headache, dizziness, GI bleed, back pain, seizure, CVA, palpatations, mental health, musculoskeletal)? @ -Differential Chest Pain: Stable Angina, Unstable Angina, STEMI, NSTEMI Aortic Dissection, Pneumothorax, Musculoskeletal, Esophageal Spasm GERD, Cholecystitis, Pancreatitis, Zoster, this is not meant to be an all-inclusive list. EKG interpreted by me (3pts min.). @ -As above X-rays interpreted by me (1pt min.). @ -None done CT interpreted by me (1pt min.). @ -None done U/S interpreted by me (1pt. min.). @ -None done What testing was considered but not performed or refused? (CT, X-rays, U/S, labs)? Why? @ -None What meds were considered but not given or refused? Why? @ -None Did you discuss the management of the patient with other professionals (professionals i.e. TRACY Stiles, BEAD PICKER, lab, RT, psych nurse, rn social work, efficiency engineer, teacher, production officer, telehealth case manager)? Give summary @ -Spoke with [facility] they agreed to admit the patient Was smoking cessation discussed for >3mins.? @ -No Was critical care preformed (if so, how long)? @ -No Were there social determinants of health that impacted care today? How? (Homelessness, low income, unemployed, alcoholism, drug addiction, transportation, low edu. Level, literacy, decrease access to med. care, skilled nursing, rehab)? @ -No Was there de-escalation of care discussed even if they declined (Discuss DNR or withdrawal of care, Hospice)? DNR status @ -No What co-morbidities impacted this encounter? (DM, HTN, Smoking, COPD, CAD, Cancer, CVA, ARF, Chemo, Hep., AIDS, mental health diagnosis, sleep apnea, morbid obesity)? @ -None Was patient admitted / discharged? Hospital course, mention meds given and route, prescriptions, significant lab abnormalities, going to OR and other perti nent info. @ -Patient had no chest pain on arrival. EKG was done and showed no acute abnormality. Patient will be admitted to cardiology will be consulted [facility] Undiagnosed new problem with uncertain prognosis? @ -No Drug Therapy requiring intensive monitoring for toxicity (Heparin, Nitro, Insulin, Cardizem)? @ -No Were any procedures done? @ -No Diagnosis/symptom? @ -Chest Acute, or Chronic, or Acute on Chronic? @ -Acute Uncomplicated (without systemic symptoms) or Complicated (systemic symptoms)? @ -Complicated Side effects of treatment? @ -No Exacerbation, Progression, or Severe Exacerbation? @ -No Poses a threat to life or bodily function? How? (Chest pain, USA, LA, pneumonia, PE, COPD, DKA, ARF, appy, cholecystitis, CVA, Diverticulitis, Homicidal, Suicidal, threat to staff... and all critical care pts) @ -Yes this could lead to an LA and endorgan dysfunction Disposition Clinical Impression: Chest pain Disposition: ADMITTED IP TO THIS HOSP Referrals: Evelyn Vallejo [Primary Care Provider] - 1-2 days Time of Disposition: 19:07
[2024-05-16] MEDS ORDERED: ALBUTEROL NEBULIZED 2.5 MG/3 ML INHALATION PRN (19:10)
[2024-05-16] MEDS: FLUTICASONE 110 MCG INHALER INHALATION SCH (20:12)
[2024-05-16] MEDS: IPRATROPIUM 0.5 MG/2.5 ML NEBU INHALATION SCH (20:12)
[2024-05-16] MEDS: METOPROLOL TARTRATE 12.5 MG TAB PO SCH (21:47)
[2024-05-16] MEDS: MONTELUKAST 10 MG TAB PO SCH (21:47)
[2024-05-16] MEDS: NITROGLYCERIN SL TABS 0.4 MG TAB SUBLINGUAL PRN (23:04)
[2024-05-16] MEDS: NITROGLYCERIN OINT 1 INCH/GM PACKET TOPICAL SCH (23:50)
[2024-05-17] MEDS: HYDROcodone/APAP 5-325MG 1 EACH TAB PO PRN (05:18)
[2024-05-17 08:51] LABS: Chol/HDL Ratio 2.11 Ratio; LDL Cholesterol,Calculated 26.6 mg/dL (0.0-131.0)
[2024-05-17] MEDS: SPIRONOLACTONE 25 MG TAB PO SCH (09:42)
[2024-05-17] MEDS: EZETIMIBE 10 MG TAB PO SCH (09:42)
[2024-05-17] MEDS: lisinopriL 10 MG TAB PO SCH (09:42)
[2024-05-17] MEDS: ASPIRIN 325 MG TAB PO SCH (09:42)
--- NOTE | 2024-05-17 10:10 | P.HPIM ---
History of Present Illness H&P Date: 05/17/24 Chief Complaint: Unstable angina / Syncope Jose Abdul 73 y.o. M with past medical history of [place] with catheter placed, s/p right carotid endarterectomy, hypertension dyslipidemia presents with unstable angina and syncope. Patient symptoms began yesterday morning with caitlyn tral chest pain radiating to jaw stabbing and squeezing in nature which was alleviated moderately with nitroglycerin and symptoms began to recur with dyspnea and syncope. At this time patient had syncopal episode witnessed by spouse. Reports no tongue biting, post-ictal or urinary incontinence at the time. Patient also attest to right knee pain. Over the last few weeks patient also describes dyspnea with walking short distances. Today patient feels well denies shortness of breath chest pain nausea vomiting chills fever. Gen: in no apparent distress, resting comfortably in bed Eyes: PERRL, no scleral injection or icterus HENT: normocephalic, atraumatic, good hearing acuity, moist mucous membranes Neck: no tracheal deviation, full range of motion Resp: good air exchange, breathing comfortably with no accessory muscle use, no tactile fremitus CVS: good distal perfusion x 4, no pitting edema GI: soft, NTTP, ND, no hepatosplenomegaly : no suprapubic tenderness, no CVAT, abdi catheter is not present MSK: no clubbing, no cyanosis, no noted contractures of extremities Skin: bilateral leg rashes, petechiae; temperature of skin is appropriate Neuro: moving all extremities without signs of weakness, CN II-XII intact Psych: cooperative, euthymic mood, insight and judgment intact All Systems reviewed and pertinent positives and negatives noted in HPI, all other symptoms are negative Past Medical History Past Medical History: Coronary Artery Disease (CAD), COPD, Hyperlipidemia, Hypertension, Myocardial Infarction ([place]), Musculoskeletal Disorder Additional Past Medical History / Comment(s): LEFT SHOULDER PAIN, oral surgery Last Myocardial Infarction Date:: 2011 History of Any Multi-Drug Resistant Organisms: None Reported Past Surgical History: Back Surgery, Heart Catheterization, Joint Replacement Additional Past Surgical History / Comment(s): CAROTED ARTERIOGRAM , CAROTID SURGERY (LEFT ) TOTAL RIGHT SHOULDER Past Anesthesia/Blood Transfusion Reactions: No Reported Reaction Past Psychological History: No Psychological Hx Reported Smoking Status: Former smoker Past Alcohol Use History: Occasional Additional Past Alcohol Use History / Comment(s): STARTED SMOKING AT AGE 16 QUIT 2009 SMOKED 1PPD Past Drug Use History: None Reported - Past Family History Mother Family Medical History: Cancer, Deep Vein Thrombosis (DVT) Mother Sister(s) Family Medical History: Cancer Father Family Medical History: Chest Pain / Angina, Congestive Heart Failure (CHF), CVA/TIA, Myocardial Infarction ([place]) Medications and Allergies Home Medications Medication Instructions Recorded Confirmed Type Aspirin 81 mg PO DAILY 06/21/14 05/16/24 History Albuterol Sulfate [Ventolin HFA] 2 puff INHALATION RT-Q6H PRN 12/09/22 05/16/24 History Beclomethasone Dipropionate [Qvar 2 puff INHALATION RT-BID 12/09/22 05/16/24 History 80mcg Redihaler] Ipratropium [place] [Atrovent Hfa] 2 puff INHALATION RT-BID 12/09/22 05/16/24 History Metoprolol Tartrate [Lopressor] 12.5 mg PO BID 12/09/22 05/16/24 History Montelukast [Singulair] 10 mg PO HS 12/09/22 05/16/24 History lisinopriL [Zestril] 10 mg PO DAILY 12/09/22 05/16/24 History Nitroglycerin Sl Tabs [Nitrostat] 0.4 mg SL Q5M PRN 02/07/23 05/16/24 History Spironolactone [Aldactone] 25 mg PO DAILY 02/07/23 05/16/24 History Ezetimibe [Zetia] 10 mg PO DAILY 05/16/24 05/16/24 History Allergies Allergy/AdvReac Type Severity Reaction Status Date / Time codeine Allergy Dyspnea & Verified 05/16/24 18:52 Hives Physical Exam Vitals: Vital Signs Temp Pulse Pulse Resp BP BP Pulse Ox 05/17/24 08:39 97.8 F 69 18 115/64 97 05/17/24 08:20 70 05/17/24 08:06 68 05/17/24 04:00 98.1 F 61 19 97/52 96 05/17/24 00:00 97.9 F 60 18 138/62 94 L 05/16/24 23:04 66 22 178/90 98 07/01/24 22:32 75 18 136/61 98 05/16/24 21:11 76 16 125/75 94 L 05/16/24 20:21 84 05/16/24 20:13 88 05/16/24 16:50 98.1 F 56 L 18 146/74 93 L Intake and Output 05/16/24 05/17/24 05/17/24 22:59 06:59 14:59 Intake Total 142.323 0 Output Total 500 Balance -357.677 0 Intake: Intake, IV Titration 142.323 Amount Heparin Sod,Pork in 0.45% 142.323 NaCl 25,000 unit In 0.45 % NaCl 1 250ml.bag @ 11. 023 UNITS/KG/HR 10 mls/hr IV .Q24H [facility] Rx#: [id number] Oral 0 Output: Urine 500 Other: Voiding Method Toilet Weight 90.718 kg 80 kg Results CBC & Chem 7: 05/17/24 11:24 05/17/24 11:24 Labs: Abnormal Lab Results - Last 24 Hours (Table) 05/17/24 05/17/24 Range/Units 00:13 06:22 APTT 34.8 H 41.6 H (22.0-30.0) sec Thrombosis Risk Factor Assmnt - Choose All That Apply Any of the Below Risk Factors Present?: Yes Each Factor Represents 1 point: Abnormal pulmonary function (COPD), Obesity (BMI >25) Each Risk Factor Represents 2 Points: Age 61-74 years Thrombosis Risk Factor Assessment Total Risk Factor Score: 4 Thrombosis Risk Factor Assessment Level: Moderate Risk Assessment and Plan (1) Unstable angina Current Visit: Yes Status: Acute Code(s): I20.0 - UNSTABLE ANGINA SNOMED Code(s): 0781848 Plan: Unstable angina - Given heparin aspirin and nitro in ER - EKG sinus bradycardia - Consult cardiology - Plan to order D-dimer - Follow-up with telemetry - EKG and troponins rule out likely ACS Syncope - possible CV etiology - continuous monitor with telemetry - 2D echo ordered Bilateral leg Dermatitis - diclofenac cream Right knee pain - pain following syncopal episode - knee x ray suprapatellar effusion Hypertension -Continue home meds Dyslipidemia - Continue home meds
--- NOTE | 2024-05-17 10:25 | XR ---
EXAMINATION TYPE: XR knee limited RT DATE OF EXAM: 05/17/2024 COMPARISON: NONE HISTORY: Pain TECHNIQUE: Three views are submitted. FINDINGS: There are enthesophytes involving the anterior margin of patella. There is a metallic density along t he inferior anterior margin of the patella. Marginal spurring of the patella and medial compartment o f the knee joint. Vascular calcifications noted.. Osseous structures are intact. No acute fracture seen. Small suprapatellar bursal fluid collection. IMPRESSION: 1. No acute fracture or dislocation. 2. Mild osteoarthritis. 3. Small suprapatellar bursal fluid collection. 4. Metallic density anterior to the lower margin of the patella could represent a chronic foreign bod y but is too small to characterize correlate clinically.
[2024-05-17 12:03] LABS: ALT 21 U/L (4-49); African American GFR (CKD) >90 (>60 ml/min/1.73 sqM); Albumin 4.4 g/dL (3.5-5.0); Alkaline Phosphatase 51 U/L (38-126); Anion Gap 12 mmol/L; Blood Urea Nitrogen 16 mg/dL (9-20); Calcium 9.4 mg/dL (8.4-10.2); Carbon Dioxide 20 mmol/L (22-30); Chloride 104 mmol/L (98-107); Glucose 108 mg/dL (74-99); Non-African American GFR(CKD) 82 (>60 ml/min/1.73 sqM); Potassium 4.6 mmol/L (3.5-5.1); Sodium 136 mmol/L (137-145); Total Bilirubin 0.5 mg/dL (0.2-1.3)
[2024-05-17 12:06] LABS: Basophils # (A) 0.1 k/uL (0-0.2); Basophils % (A) 1 %; Eosinophils # (A) 0.1 k/uL (0-0.7); Eosinophils % (A) 1 %; HCT 38.5 % (39.0-53.0); HGB 12.1 gm/dL (13.0-17.5); Lymphocytes # (A) 1.4 k/uL (1.0-4.8); Lymphocytes % (A) 15 %; MCH 26.9 pg (25.0-35.0); MCHC 31.4 g/dL (31.0-37.0); MCV 85.7 fL (80.0-100.0); Mean Platelet Volume 7.3; Monocytes # (A) 0.7 k/uL (0-1.0); Monocytes % (A) 7 %; Neutrophils # (A) 6.6 k/uL (1.3-7.7); Neutrophils % (A) 74 %; Platelet Count 264 k/uL (150-450); RBC 4.49 m/uL (4.30-5.90); RDW 15.6 % (11.5-15.5); WBC 8.9 k/uL (3.8-10.6)
[2024-05-17] MEDS: RANOLAZINE 500 MG TAB.ER.12H PO SCH (13:08)
[2024-05-17] MEDS: ISOSORBIDE MONONITRATE ER 15 MG TAB PO SCH (13:08)
[2024-05-17] MEDS: METOPROLOL TARTRATE 12.5 MG TAB PO STA (13:09)
--- NOTE | 2024-05-17 13:19 | P.CRDCN ---
History of Present Illness Consult date: 05/17/24 Reason for Consult (text): Unstable angina, syncope History of present illness: This is a 73-year-old male patient of Dr. Garcia with past medical history of coronary artery disease and valvular heart disease with aortic stenosis and aortic regurgitation, carotid atherosclerosis post carotid endarterectomy on the left, hypertension, dyslipidemia, remote history of tobacco use, history of COPD. We have been asked to evaluate the patient for unstable angina and syncope. Patient presented to the hospital due to chest pain and syncope. Lucila ent states [place] was [place] and he developed chest pain he took 1 nitroglycerin and his chest pain started getting better but then it resumed and he took a second nitroglycerin and the next thing he knew he was on the ground and his called EMS. His states he was out for about 3 minutes. He has had ongoing problems with chest pain with symptomatic shortness of breath with exertion. Patient states he has had chest pain which may occur with or without exertion. Patient denies having any chest pain at this time. He is on Nitropaste which will be discontinued. He is sure that the nitroglycerin sublingual seem to help. He does have a follow-up appointment in 2 weeks. He was last seen in the office on 02/09/2024 and at that time there was concern that he is symptomatic shortness of breath had been related to his progression of his aortic stenosis or aortic regurgitation an echocardiogram was ordered prior to his next visit. Dr. No discussed case with Dr. Garcia and then with the patient and his . Everyone is in agreement to try medical management initially. Patient is not interested in moving forward with stress test as he had a bad reaction to a Lexiscan in the past. Blood pressure 102/59, heart rate 59, pulse ox 95% on room air. EKG: Sinus rhythm with no acute ST-T wave changes Laboratory studies: WBC 8.9, hemoglobin 12.1. Sodium 136, potassium 4.6, cr eatinine 0.92. Troponin negative x 2. Triglycerides 104, cholesterol 90, LDL 26. Home cardiac medications: Aspirin 81 mg daily, Zetia 10 mg daily, lisinopril 10 mg daily, Lopressor 12.5 mg twice daily, Nitrostat as needed, Aldactone 25 mg daily. Echocardiogram performed in the office on 02/27/2024 revealed EF of 55 to 60%, mild left ventricular hypertrophy. Moderate aortic regurgitation and moderate aortic stenosis. Aortic valve is calcified. Mild mitral regurgitation, mild tricuspid regurgitation, PASP 46 mmHg. Trace to mild pulmonic regurgitation. BASIL 09/02/2022 revealed trileaflet aortic valve with evidence of severe aortic insufficiency as well as reversal of flow in the descending aorta. Normal left ventricular dimension and systolic function. Mild to moderate mitral regurgitat ion. Mild to moderate tricuspid regurgitation. Intact interatrial septum. No evidence of pericardial effusion Cardiac catheterization 09/02/2022 revealed mild nonobstructive coronary artery disease. At least 3+ aortic insufficiency. Review Of Systems: At the time of my exam: CONSTITUTIONAL: Denies fever or chills. HEENT: Denies blurred vision, vision changes, or eye pain. Denies hemoptysis CARDIOVASCULAR: Denies chest pain. Denies orthopnea. Denies PND. Denies palpitations RESPIRATORY: Denies shortness of breath. GASTROINTESTINAL: Denies abdominal pain. Denies nausea or vomiting. HEMATOLOGIC: Denies bleeding disorders. GENITOURINARY: Denies any blood in urine. SKIN: Denies puritis. Denies rash. Physical examination: Gen: This is a 73-year-old male in no acute distress VS: reviewed HEENT: Head is atraumatic, normocephalic. Pupils equal, round. Sclerae is anicteric. NECK: Supple. No JVD. Right carotid bruit. LUNGS: Clear to auscultation. No wheezes or rhonchi. No intercostal retractions. HEART: Regular rate and rhythm. Systolic and diastolic murmur at the right and left upper sternal border. ABDOMEN: Soft No tenderness. EXTREMITIES: No pedal edema. No calf tenderness. NEUROLOGICAL: Patient is awake, alert and oriented x3. Assessment: Syncopal episode most likely due to nitroglycerin Atypical chest pain, acute coronary syndrome ruled out with negative troponin x 2 Dyspnea on exertion concerning for coronary artery disease, symptomatic aortic stenosis/aortic regurgitation Known carotid atherosclerosis status post left carotid endarterectomy Hypertension Dyslipidemia Remote history of tobacco use COPD Plan: Resume patient's home cardiac medications with the following changes: Discontinue Aldactone Add Imdur 15 mg daily, Ranexa 500 mg twice daily Decrease lisinopril to 5 mg daily Discontinue Nitropaste Change aspirin to 81 mg daily No need to repeat echocardiogram as this was done in February Orthostatic vital signs in the morning Further recommendations to follow based upon clinical course Thank you kindly for this consultation. Nurse practitioner note has been reviewed, I agree with documented findings and plan of care. Patient was seen and examined. Past Medical History Past Medical History: Coronary Artery Disease (CAD), COPD, Hyperlipidemia, Hypertension, Myocardial Infarction ([place]), Musculoskeletal Disorder Additional Past Medical History / Comment(s): LEFT SHOULDER PAIN, oral surgery Last Myocardial Infarction Date:: 2011 History of Any Multi-Drug Resistant Organisms: None Reported Past Surgical History: Back Surgery, Heart Catheterization, Joint Replacement Additional Past Surgical History / Comment(s): CAROTED ARTERIOGRAM , CAROTID SURGERY (LEFT ) TOTAL RIGHT SHOULDER Past Anesthesia/Blood Transfusion Reactions: No Reported Reaction Past Psychological History: No Psychological Hx Reported Smoking Status: Former smoker Past Alcohol Use History: Occasional Additional Past Alcohol Use History / Comment(s): STARTED SMOKING AT AGE 16 QUIT 2009 SMOKED 1PPD Past Drug Use History: None Reported - Past Family History Mother Family Medical History: Cancer, Deep Vein Thrombosis (DVT) Mother Sister(s) Family Medical History: Cancer Father Family Medical History: Chest Pain / Angina, Congestive Heart Failure (CHF), CVA/TIA, Myocardial Infarction ([place]) Medications and Allergies Home Medications Medication Instructions Recorded Confirmed Type Aspirin 81 mg PO DAILY 06/21/14 05/16/24 History Albuterol Sulfate [Ventolin HFA] 2 puff INHALATION RT-Q6H PRN 12/09/22 05/16/24 History Beclomethasone Dipropionate [Qvar 2 puff INHALATION RT-BID 12/09/22 05/16/24 History 80mcg Redihaler] Ipratropium [place] [Atrovent Hfa] 2 puff INHALATION RT-BID 12/09/22 05/16/24 History Metoprolol Tartrate [Lopressor] 12.5 mg PO BID 12/09/22 05/16/24 History Montelukast [Singulair] 10 mg PO HS 12/09/22 05/16/24 History lisinopriL [Zestril] 10 mg PO DAILY 12/09/22 05/16/24 History Nitroglycerin Sl Tabs [Nitrostat] 0.4 mg SL Q5M PRN 02/07/23 05/16/24 History Spironolactone [Aldactone] 25 mg PO DAILY 02/07/23 05/16/24 History Ezetimibe [Zetia] 10 mg PO DAILY 05/16/24 05/16/24 History Allergies Allergy/AdvReac Type Severity Reaction Status Date / Time codeine Allergy Dyspnea & Verified 05/16/24 18:52 Hives Physical Exam Vitals: Vital Signs Temp Pulse Pulse Resp BP BP Pulse Ox 05/17/24 08:39 97.8 F 69 18 115/64 97 05/17/24 08:20 70 05/17/24 08:06 68 05/17/24 04:00 98.1 F 61 19 97/52 96 05/17/24 00:00 97.9 F 60 18 138/62 94 L 05/16/24 23:04 66 22 178/90 98 05/16/24 22:32 75 18 136/61 98 05/16/24 21:11 76 16 125/75 94 L 05/16/24 20:21 84 05/16/24 20:13 88 05/16/24 16:50 98.1 F 56 L 18 146/74 93 L Intake and Output 05/16/24 05/17/24 05/17/24 22:59 06:59 14:59 Intake Total 142.323 0 Output Total 500 Balance -357.677 0 Intake: Intake, IV Titration 142.323 Amount Heparin Sod,Pork in 0.45% 142.323 NaCl 25,000 unit In 0.45 % NaCl 1 250ml.bag @ 11. 023 UNITS/KG/HR 10 mls/hr IV .Q24H [facility] Rx#: [id number] Oral 0 Output: Urine 500 Other: Voiding Method Toilet Weight 90.718 kg 80 kg Results 05/17/24 11:24 05/17/24 11:24 Cardiac Enzymes 05/16/24 05/16/24 Range/Units 19:29 23:08 Troponin I <0.012 <0.012 (0.000-0.034) ng/mL Coagulation 05/17/24 05/17/24 05/17/24 Range/Units 00:13 06:22 11:24 APTT 34.8 H 41.6 H 52.5 H (22.0-30.0) sec Lipids 05/17/24 Range/Units 06:22 Triglycerides 104.00 (0.00-149.00) mg/dL Cholesterol 90.00 (0.00-200.00) mg/dL HDL Cholesterol 42.60 (40.00-60.00) mg/dL Cholesterol/HDL Ratio 2.11 Ratio Current Medications Generic Name Dose Route Start Last Admin Trade Name Freq PRN Reason Stop Dose Admin Hydrocodone Bitart/Acetaminophen 1 each 05/17/24 05:04 05/17/24 05:18 Hydrocodone/Apap 5-325mg 1 Each Tab PO 1 each Q6HR PRN Administration Pain Albuterol Sulfate 2.5 mg 05/16/24 19:10 Albuterol Nebulized 2.5 Mg/3 Ml INHALATION RT-Q6H PRN Shortness Of Breath Aspirin 325 mg 05/17/24 09:00 05/17/24 09:42 Aspirin 325 Mg Tab PO 325 mg DAILY RAJAN Administration Ezetimibe 10 mg 05/17/24 09:00 05/17/24 09:42 Ezetimibe 10 Mg Tab PO 10 mg DAILY RAJAN Administration Fluticasone Propionate 2 puff 05/16/24 20:00 05/17/24 08:05 Fluticasone 110 Mcg Inhaler INHALATION 2 puff RT-BID RAJAN Administration Heparin Sodium/Sodium Chloride 250 mls @ 10 mls/hr 05/16/24 17:15 05/17/24 06:59 25,000 unit/ Sodium Chloride IV 15.023 units/kg/hr .Q24H RAJAN 13.629 mls/hr Titration Protocol 11.023 UNITS/KG/HR Ipratropium [place] 0.5 mg 05/16/24 20:00 05/17/24 08:05 Ipratropium 0.5 Mg/2.5 Ml Nebu INHALATION 0.5 mg RT-BID RAJAN Administration Lisinopril 10 mg 05/17/24 09:00 05/17/24 09:42 Lisinopril 10 Mg Tab PO 10 mg DAILY RAJAN Administration Metoprolol Tartrate 12.5 mg 05/16/24 21:00 05/17/24 09:42 Metoprolol Tartrate 12.5 Mg Tab PO 12.5 mg BID RAJAN Administration Montelukast Sodium 10 mg 05/16/24 21:00 05/16/24 21:47 Montelukast 10 Mg Tab PO 10 mg HS RAJAN Administration Nitroglycerin 0.4 mg 05/16/24 19:07 05/16/24 23:04 Nitroglycerin Sl Tabs 0.4 Mg Tab SUBLINGUAL 0.4 mg Q5M PRN Administration Chest Pain Nitroglycerin 1 inch 05/17/24 00:00 05/17/24 05:18 Nitroglycerin Oint 1 Inch/Gm Packet TOPICAL 1 inch Q6HR RAJAN Administration Spironolactone 25 mg 05/17/24 09:00 05/17/24 09:42 Spironolactone 25 Mg Tab PO 25 mg DAILY RAJAN Administration Intake and Output 05/16/24 05/17/24 05/17/24 22:59 06:59 14:59 Intake Total 142.323 0 Output Total 500 Balance -357.677 0 Intake: Intake, IV Titration 142.323 Amount Heparin Sod,Pork in 0.45% 142.323 NaCl 25,000 unit In 0.45 % NaCl 1 250ml.bag @ 11. 023 UNITS/KG/HR 10 mls/hr IV .Q24H [facility]JAN Rx#: [id number] Oral 0 Output: Urine 500 Other: Voiding Method Toilet Weight 90.718 kg 80 kg
[2024-05-17 17:51] LABS: AST 21 U/L (17-59)
[2024-05-17] MEDS: METOPROLOL TARTRATE 25 MG TAB PO SCH (21:01)
[2024-05-18] MEDS: lisinopriL 5 MG TAB PO SCH (08:13)
[2024-05-18] MEDS: ASPIRIN 81 MG PO SCH (08:14)
--- NOTE | 2024-05-18 11:12 | P.PN ---
Subjective Progress Note Date: 05/18/24 Principal diagnosis: Unstable angina / Syncope Jose Abdul 73 y.o. M with past medical history of [place] with catheter placed, s/p right carotid endarterectomy, hypertension dyslipidemia presents with unstable angina and syncope. Patient symptoms began yesterday morning with cent ral chest pain radiating to jaw stabbing and squeezing in nature which was alleviated moderately with nitroglycerin and symptoms began to recur with dyspnea and syncope. At this time patient had syncopal episode witnessed by spouse. Reports no tongue biting, post-ictal or urinary incontinence at the time. Patient also attest to right knee pain. Over the last few weeks patient also describes dyspnea with walking short distances. Today patient feels well denies shortness of breath chest pain nausea vomiting chills fever. 05-18-24 - Patient seen at bedside. Episodes of chest pain and dypnea 2x, given GTN which resolved symptoms. Knee pain is present, improved moderately with ice. He reports absence of nausea, vomiting, chills, fever. Ddimer and CTA chest thorax reviewed. Patient awaiting echo. REVIEW OF SYSTEMS: CONSTITUTIONAL: No fever, no malaise, no fatigue. CARDIOVASCULAR: No chest pain, orthopnea, PND, no palpitations, no syncope. PULMONARY: No shortness of breath, no cough, no hemoptysis. GASTROINTESTINAL: No diarrhea, no nausea, no vomiting, no abdominal pain. HEMATOLOGICAL: Denies any bleeding or petechiae. PHYSICAL EXAMINATION: GENERAL: The patient is alert and oriented x3, not in any acute distress. Well developed, well nourished. HEENT: Pupils are round and equally reacting to light. EOMI. No scleral icterus. No conjunctival pallor. Normocephalic, atraumatic. No pharyngeal erythema. No thyromegaly. CARDIOVASCULAR: S1 and S2 present. No murmurs, rubs, or gallops. PULMONARY: Chest is clear to auscultation, no wheezing or crackles. ABDOMEN: Soft, nontender, nondistended, normoactive bowel sounds. No palpable organomegaly. MUSCULOSKELETAL: No joint swelling or deformity. EXTREMITIES: No cyanosis, clubbing, or pedal edema. NEUROLOGICAL: Gross neurological examination did not reveal any focal deficits. SKIN: No rashes. Assessment and plan Unstable angina - Given heparin, aspirin, and nitro in ER - EKG sinus bradycardia - Troponins x2 negative, ACS r/o - D-dimer 1.76 - CTA chest thorax performed 05-16, PE ruled out - serial EKGs - continue with telemetry - Consult cardiology - continue with reccs Syncope - possibly due to nitroglycerin use - continuous monitor with telemetry - orthostatics per cardio reccs Bilateral leg Dermatitis - diclofenac cream Right knee pain - pain following syncopal episode - knee x ray suprapatellar effusion Hypertension -Continue meds per cards Dyslipidemia - Continue meds per cards Objective - Vital Signs Vital signs: Vital Signs Temp 98.1 F 05/18/24 04:00 Pulse 65 05/18/24 06:17 Resp 16 05/18/24 04:00 BP 107/58 05/18/24 06:17 Pulse Ox 96 05/18/24 04:00 FiO2 Intake & Output 05/17/24 05/18/24 05/18/24 18:59 06:59 18:59 Intake Total 680 Output Total 150 Balance 680 -150 Weight 80.5 kg Intake: Oral 680 Output: Urine 150 Other: Voiding Method Toilet Toilet # Voids 2 - Labs CBC & Chem 7: 05/18/24 12:05 05/18/24 12:05 Labs: Abnormal Lab Results - Last 24 Hours (Table) 05/17/24 05/17/24 05/17/24 Range/Units 11:24 11:24 11:24 Hgb 12.1 L (13.0-17.5) gm/dL Hct 38.5 L (39.0-53.0) % RDW 15.6 H (11.5-15.5) % APTT 52.5 H (22.0-30.0) sec D-Dimer (<0.60) mg/L FEU Sodium 136 L (137-145) mmol/L Carbon Dioxide 20 L (22-30) mmol/L Glucose 108 H (74-99) mg/dL 05/17/24 Range/Units 14:55 Hgb (13.0-17.5) gm/dL Hct (39.0-53.0) % RDW (11.5-15.5) % APTT (22.0-30.0) sec D-Dimer 1.76 H (<0.60) mg/L FEU Sodium (137-145) mmol/L Carbon Dioxide (22-30) mmol/L Glucose (74-99) mg/dL Assessment and Plan (1) Unstable angina Current Visit: Yes Status: Acute Code(s): I20.0 - UNSTABLE ANGINA SNOMED Code(s): 3782852
[2024-05-18] MEDS: ISOSORBIDE MONONITRATE ER 15 MG TAB PO STA (11:55)
--- NOTE | 2024-05-18 12:06 | CA ---
Transthoracic Echo Report Name: Jose Abdul Age: 73 Gender: M : 1950 Exam Date: 05/18/2024 10:42 Exam Location: [facility] Ht (in): 71 Wt (lb): 177 Ordering Physician: Favio No MD ([id number]) Attending/Referring Phys: Golf Cart Repairer Ilana Peralta RDCS Procedure CPT: Indications: aortic regurg Cardiac Hx: Technical Quality: Good Contrast 1: Total Dose (mL): Contrast 2: Total Dose (mL): MEASUREMENTS (Male / Female) Normal Values 2D ECHO LV Diastolic Diameter PLAX 4.2 cm 4.2 - 5.9 / 3.9 - 5.3 cm LV Systolic Diameter PLAX 2.7 cm IVS Diastolic Thickness 1.5 cm 0.6 - 1.0 / 0.6 - 0.9 cm LVPW Diastolic Thickness 1.3 cm 0.6 - 1.0 / 0.6 - 0.9 cm LV Relative Wall Thickness 0.7 RV Internal Dim ED PLAX 3.4 cm LVOT Diameter 2.6 cm LA Systolic Diameter LX 2.7 cm 3.0 - 4.0 / 2.7 - 3.8 cm LV Diastolic Volume MOD 4C 72.3 cm??? LV Systolic Volume MOD 4C 25.1 cm??? LV Ejection Fraction MOD 4C 65.2 % LV Cardiac Index MOD 4C 1406.5 cm???/min???m??? LV Diastolic Length 4C 8.5 cm LV Systolic Length 4C 6.7 cm LV Diastolic Volume MOD 2C 94.3 cm??? LV Systolic Volume MOD 2C 45.4 cm??? LV Ejection Fraction MOD 2C 51.9 % LV Cardiac Index MOD 2C 1460.9 cm???/min???m??? LV Diastolic Length 2C 9.5 cm LV Systolic Length 2C 7.6 cm LA Volume 42.9 cm??? 18 - 58 / 22 - 52 cm??? LA Volume Index 21.3 cm???/m??? 16 - 28 cm???/m??? M-MODE Aortic Root Diameter MM 3.7 cm AV Cusp Separation MM 1.5 cm DOPPLER AV Peak Velocity 294.1 cm/s AV Peak Gradient 34.6 mmHg AV Mean Velocity 208.9 cm/s AV Mean Gradient 20.2 mmHg AV Velocity Time Integral 66.0 cm AI Peak Velocity 302.9 cm/s AI Peak Gradient 36.7 mmHg AI Pressure Half Time 1274.8 ms MV Area PHT 1.9 cm??? Mitral E Point Velocity 74.5 cm/s Mitral A Point Velocity 118.1 cm/s Mitral E to A Ratio 0.6 MV Deceleration Time 400.2 ms TR Peak Velocity 254.9 cm/s TR Peak Gradient 26.0 mmHg Right Ventricular Systolic Press 30.2 mmHg FINDINGS Left Ventricle Left ventricular ejection fraction is estimated at 55-60 %. Left ventricular cavity size normal. Moderate concentric left ventricular hypertrophy. Normal left ventricular wall motion. Right Ventricle Mild right ventricular dilatation. Right ventricular systolic pressure within normal limits. Right Atrium Normal right atrial size. No right atrial thrombus or mass seen. Left Atrium Normal left atrial size. No left atrial thrombus or mass present. Mitral Valve Mitral valve thickened. Mild mitral annular calcification. No mitral stenosis, regurgitation or prolapse. Aortic Valve Trileaflet aortic valve. Aortic valve sclerosis. Moderate aortic stenosis with a peak gradient of 35 mmHg and a mean gradient of 20 mmHg.[id number] aortic regurgitation. Tricuspid Valve Structurally normal tricuspid valve. Mild tricuspid regurgitation. Pulmonic Valve Structurally normal pulmonic valve. Trace pulmonic regurgitation. Pericardium No pericardial effusion. Aorta Normal size aortic root and proximal ascending aorta. CONCLUSIONS 1. Normal left ventricular size and systolic function 2. Moderate aortic stenosis with mild to moderate aortic regurgitation 3. Mild tricuspid regurgitation with no evidence of pulmonary hypertension Previewed by: Dr. Sapphire Lazar MD (Electronically Signed) Final Date: 18 May 2024 12:05
[2024-05-18 13:11] LABS: ALT 15 U/L (4-49); African American GFR (CKD) 82 (>60 ml/min/1.73 sqM); Albumin 4.1 g/dL (3.5-5.0); Anion Gap 8 mmol/L; Blood Urea Nitrogen 17 mg/dL (9-20); Calcium 9.3 mg/dL (8.4-10.2); Carbon Dioxide 22 mmol/L (22-30); Chloride 102 mmol/L (98-107); Glucose 97 mg/dL (74-99); Non-African American GFR(CKD) 71 (>60 ml/min/1.73 sqM); Sodium 132 mmol/L (137-145); Total Bilirubin 0.9 mg/dL (0.2-1.3); Total Protein 6.9 g/dL (6.3-8.2)
[2024-05-18 13:14] LABS: Basophils % (A) 1 %; Eosinophils # (A) 0.1 k/uL (0-0.7); Eosinophils % (A) 1 %; HCT 40.1 % (39.0-53.0); HGB 13.1 gm/dL (13.0-17.5); Lymphocytes % (A) 12 %; MCH 28.1 pg (25.0-35.0); MCHC 32.5 g/dL (31.0-37.0); MCV 86.4 fL (80.0-100.0); Monocytes # (A) 0.7 k/uL (0-1.0); Monocytes % (A) 8 %; Neutrophils # (A) 6.7 k/uL (1.3-7.7); Neutrophils % (A) 77 %; Platelet Count 216 k/uL (150-450); RBC 4.64 m/uL (4.30-5.90); RDW 15.4 % (11.5-15.5); WBC 8.7 k/uL (3.8-10.6)
[2024-05-18 13:16] LABS: AST 22 U/L (17-59); Alkaline Phosphatase 40 U/L (38-126); Potassium 4.9 mmol/L (3.5-5.1)
--- NOTE | 2024-05-18 14:11 | P.PN ---
Subjective Progress Note Date: 05/18/24 Reason for Consult (text): Unstable angina, syncope History of present illness: This is a 73-year-old male patient of Dr. Garcia with past medical history of coronary artery disease and valvular heart disease with aortic stenosis and aortic regurgitation, carotid atherosclerosis post carotid endarterectomy on the left, hypertension, dyslipidemia, remote history of tobacco use, history of COPD. We have been asked to evaluate the patient for unstable angina and syncope. Patient presented to the hospital due to chest pain and syncope. Patient [place] and he developed chest pain he took 1 nitroglycerin and his chest pain started getting better but then it resumed and he took a second nitroglycerin and the next thing he knew he was on the ground and his called EMS. His states he was out for about 3 minutes. He mancia s had ongoing problems with chest pain with symptomatic shortness of breath with exertion. Patient states he has had chest pain which may occur with or without exertion. Patient denies having any chest pain at this time. He is on Nitropaste which will be discontinued. He is sure that the nitroglycerin sublingual seem to help. He does have a follow-up appointment in 2 weeks. He was last seen in the office on 02/09/2024 and at that time there was concern that he is symptomatic shortness of breath had been related to his progression of his aortic stenosis or aortic regurgitation an echocardiogram was ordered prior to his next visit. Dr. No discussed case with Dr. Garcia and then with the patient and his . Everyone is in agreement to try medical management initially. Patient is not interested in moving forward with stress test as he had a bad reaction to a Lexiscan in the past. Blood pressure 102/59, heart rate 59, pulse ox 95% on room air. EKG: Sinus rhythm with no acute ST-T wave changes Laboratory studies: WBC 8.9, hemoglobin 12.1. Sodium 136, potassium 4.6, creatinine 0.92. Troponin negative x 2. Triglycerides 104, cholesterol 90, LDL 26. Home cardiac medications: Aspirin 81 mg daily, Zetia 10 mg daily, lisinopril 10 mg daily, Lopressor 12.5 mg twice daily, Nitrostat as needed, Aldactone 25 mg daily. Echocardiogram performed in the office on 02/27/2024 revealed EF of 55 to 60%, mild left ventricular hypertrophy. Moderate aortic regurgitation and moderate aortic stenosis. Aortic valve is calcified. Mild mitral regurgitation, mild tricuspid regurgitation, PASP 46 mmHg. Trace to mild pulmonic regurgitation. BASIL 09/02/2022 revealed trileaflet aortic valve with evidence of severe aortic insufficiency as well as reversal of flow in the descending aorta. Normal left ventricular dimension and systolic function. Mild to moderate mitral regurgitation. Mild to moderate tricuspid regurgitation. Intact interatrial septum. No evidence of pericardial effusion Cardiac catheterization 09/02/2022 revealed mild nonobstructive coronary artery disease. At least 3+ aortic insufficiency. 05/18 Patient apparently had episode of chest pain all through the night and received nitroglycerin at 720 this morning. He states he now feels weak. He did have a drop in his blood pressure following nitroglycerin. Orthostatics were checked which were positive at the time. Blood pressure is 90/54, heart rate 62, pulse ox 96% on room air. Repeat blood work reveals hemoglobin 13.1. Sodium 132, potassium 4.9, creatinine 1.04. Yesterday, Imdur 15 mg daily and Ranexa 500 mg twice daily were added to patient's medical regime. We also decreased lisinopril to 5 mg daily due to soft blood pressures. Echocardiogram reveals normal left ventricular size and systolic function. Moderate with mild to moderate AR, mild TR with no evidence of pulmonary hypertension. Physical examination: Gen: This is a 73-year-old male in no acute distress VS: reviewed HEENT: Head is atraumatic, normocephalic. Pupils equal, round. Sclerae is anicteric. NECK: Supple. No JVD. Right carotid bruit. LUNGS: Clear to auscultation. No wheezes or rhonchi. No intercostal retractions . HEART: Regular rate and rhythm. Systolic and diastolic murmur at the right and left upper sternal border. ABDOMEN: Soft No tenderness. EXTREMITIES: No pedal edema. No calf tenderness. NEUROLOGICAL: Patient is awake, alert and oriented x3. Assessment: Syncopal episode most likely due to nitroglycerin Atypical chest pain, acute coronary syndrome ruled out with negative troponin x 2 Dyspnea on exertion concerning for coronary artery disease, symptomatic aortic stenosis/aortic regurgitation Known carotid atherosclerosis status post left carotid endarterectomy Hypertension Dyslipidemia Remote history of tobacco use COPD Moderate aortic stenosis, mild to moderate AR, mild TR Plan: Continue patient's home cardiac medications with the following changes: Continue to hold Aldactone Continue Imdur and increase to 30 mg daily, Ranexa 500 mg twice daily Discontinue lisinopril and discontinue sublingual nitroglycerin Continue aspirin 81 mg daily Orthostatic vital signs later today Further recommendations to follow based upon clinical course Nurse practitioner note has been reviewed, I agree with documented findings and plan of care. Patient was seen and examined. Objective - Vital Signs Vital signs: Vital Signs Temp 97.6 F 05/18/24 07:55 Pulse 70 05/18/24 09:28 Resp 16 05/18/24 08:10 BP 109/58 05/18/24 08:10 Pulse Ox 93 L 05/18/24 07:55 FiO2 Intake & Output 05/17/24 05/18/24 05/18/24 18:59 06:59 18:59 Intake Total 680 Output Total 150 Balance 680 -150 Weight 80.5 kg Intake: Oral 680 Output: Urine 150 Other: Voiding Method Toilet Toilet # Voids 2 - Labs CBC & Chem 7: 05/18/24 12:05 05/18/24 12:05 Labs: Abnormal Lab Results - Last 24 Hours (Table) 05/17/24 05/17/24 05/17/24 Range/Units 11:24 11:24 11:24 Hgb 12.1 L (13.0-17.5) gm/dL Hct 38.5 L (39.0-53.0) % RDW 15.6 H (11.5-15.5) % APTT 52.5 H (22.0-30.0) sec D-Dimer (<0.60) mg/L FEU Sodium 136 L (137-145) mmol/L Carbon Dioxide 20 L (22-30) mmol/L Glucose 108 H (74-99) mg/dL 05/17/24 Range/Units 14:55 Hgb (13.0-17.5) gm/dL Hct (39.0-53.0) % RDW (11.5-15.5) % APTT (22.0-30.0) sec D-Dimer 1.76 H (<0.60) mg/L FEU Sodium (137-145) mmol/L Carbon Dioxide (22-30) mmol/L Glucose (74-99) mg/dL
[2024-05-18] MEDS: DICLOFENAC SODIUM GEL 50 GM TUBE TOPICAL SCH (18:40)
--- NOTE | 2024-05-19 08:56 | US ---
EXAMINATION TYPE: US venous doppler duplex LE BI DATE OF EXAM: 05/19/2024 7:38 AM COMPARISON: NONE CLINICAL INDICATION: Male, 73 years old with history of swelling, elevated d-dimer; Swelling. No hx o f DVT. Patient on Heparin. SIDE PERFORMED: Bilateral TECHNIQUE: The lower extremity deep venous system is examined utilizing real time linear array sonog jose with graded compression, doppler sonography and color-flow sonography. VESSELS IMAGED: Common Femoral Vein Deep Femoral Vein Greater Saphenous Vein * Femoral Vein Popliteal Vein Small Saphenous Vein * Proximal Calf Veins (* superficial vessels) Right Leg: No evidence of DVT Left Leg: No evidence of DVT IMPRESSION:
--- NOTE | 2024-05-19 09:17 | P.PN ---
Subjective Progress Note Date: 05/19/24 Principal diagnosis: Unstable angina / Syncope Jose Abdul 73 y.o. M with past medical history of GA with catheter placed, s/p right carotid endarterectomy, hypertension dyslipidemia presents with unstable angina and syncope. Patient symptoms began yesterday morning with cent ral chest pain radiating to jaw stabbing and squeezing in nature which was alleviated moderately with nitroglycerin and symptoms began to recur with dyspnea and syncope. At this time patient had syncopal episode witnessed by spouse. Reports no tongue biting, post-ictal or urinary incontinence at the time. Patient also attest to right knee pain. Over the last few weeks patient also describes dyspnea with walking short distances. Today patient feels well denies shortness of breath chest pain nausea vomiting chills fever. 05-18-24 - Patient seen at bedside. Episodes of chest pain and dypnea 2x, given Imdur which resolved symptoms. Knee pain is present, improved moderately with ice. He reports absence of nausea, vomiting, chills, fever. Ddimer and CTA chest thorax reviewed. 05-19-24 - Patient seen at bedside. Endorsed current episode of chest pain, prior to Imdur. Knee pain is improving with diclofenac. He reports absence of nausea, vomiting, chills, fever. REVIEW OF SYSTEMS: CONSTITUTIONAL: No fever, no malaise, no fatigue. CARDIOVASCULAR: No chest pain, orthopnea, PND, no palpitations, no syncope. PULMONARY: No shortness of breath, no cough, no hemoptysis. GASTROINTESTINAL: No diarrhea, no nausea, no vomiting, no abdominal pain. HEMATOLOGICAL: Denies any bleeding or petechiae. PHYSICAL EXAMINATION: GENERAL: The patient is alert and oriented x3, not in any acute distress. Well developed, well nourished. HEENT: Pupils are round and equally reacting to light. EOMI. No scleral icterus. No conjunctival pallor. Normocephalic, atraumatic. No pharyngeal erythema. No th yromegaly. CARDIOVASCULAR: S1 and S2 present. No murmurs, rubs, or gallops. PULMONARY: Chest is clear to auscultation, no wheezing or crackles. ABDOMEN: Soft, nontender, nondistended, normoactive bowel sounds. No palpable organomegaly. MUSCULOSKELETAL: No joint swelling or deformity. EXTREMITIES: No cyanosis, clubbing, or pedal edema. NEUROLOGICAL: Gross neurological examination did not reveal any focal deficits. SKIN: No rashes. Assessment and plan Unstable angina - Given heparin, aspirin, and nitro in ER - EKG sinus bradycardia - Troponins x2 negative, ACS r/o - D-dimer 1.76 - CTA chest thorax performed 05-16, PE ruled out - serial EKGs - continue with telemetry - Cardiology do not recommend any ischemic workup at this time, dose of Imdur increased to 30 mg and Ranexa to be continued Syncope - possibly due to nitroglycerin use - continuous monitor with telemetry - orthostatics per cardio reccs Right knee pain - pain following syncopal episode - knee x ray suprapatellar effusion - diclofenac cream improving symptoms - awaiting bilateral LE US Hypertension -Continue meds per cards Dyslipidemia - Continue meds per cards Attestation I have seen and examined this patient with my resident , discussed the same with the resident/PEMA, and agree with the dictator's assessment and plan as written Dr. Tejinder hadley Objective - Vital Signs Vital signs: Vital Signs Temp 98.2 F 05/18/24 20:00 Pulse 65 05/19/24 04:00 Resp 18 05/19/24 04:00 BP 107/65 05/19/24 04:00 Pulse Ox 95 05/19/24 04:00 FiO2 Intake & Output 05/18/24 05/19/24 05/19/24 18:59 06:59 18:59 Intake Total 360 Balance 360 Weight 85.6 kg Intake: Oral 360 Other: Voiding Method Toilet Toilet # Voids 1 - Labs CBC & Chem 7: 05/18/24 12:05 05/18/24 12:05 Labs: Abnormal Lab Results - Last 24 Hours (Table) 05/18/24 Range/Units 12:05 Sodium 132 L (137-145) mmol/L Assessment and Plan (1) Unstable angina Current Visit: Yes Status: Acute Code(s): I20.0 - UNSTABLE ANGINA SNOMED Code(s): 4597739
[2024-05-19] MEDS: ISOSORBIDE MONONITRATE ER 30 MG TAB.ER.24H PO SCH (09:44)
[2024-05-19 09:59] VITALS: RESP 16
[2024-05-19 13:00] VITALS: BP 97/52; PULSE 58; TEMP 97.7
--- NOTE | 2024-05-19 13:37 | P.PN ---
Subjective Progress Note Date: 05/19/24 Reason for Consult (text): Unstable angina, syncope History of present illness: This is a 73-year-old male patient of Dr. Garcia with past medical history of coronary artery disease and valvular heart disease with aortic stenosis and aortic regurgitation, carotid atherosclerosis post carotid endarterectomy on the left, hypertension, dyslipidemia, remote history of tobacco use, history of COPD. We have been asked to evaluate the patient for unstable angina and syncope. Patient presented to the hospital due to chest pain and syncope. Patient [place] and he developed chest pain he took 1 nitroglycerin and his chest pain started getting better but then it resumed and he took a second nitroglycerin and the next thing he knew he was on the ground and his called EMS. His states he was out for about 3 minutes. He has had ongoing problems with chest pain with symptomatic shortness of breath with exertion. Patient states he has had chest pain which may occur with or without exertion. Patient denies having any chest pain at this time. He is on Nitropaste which will be discontinued. He is sure that the nitroglycerin sublingual seem to help. He does have a follow-up appointment in 2 weeks. He was last seen in the office on 02/09/2024 and at that time there was concern that he is symptomatic shortness of breath had been related to his progression of his aortic stenosis or aortic regurgitation an echocardiogram was ordered prior to his next visit. Dr. No discussed case with Dr. Garcia and then with the patient and his . Everyone is in agreement to try medical management initially. Patient is not interested in moving forward with stress test as he had a bad reaction to a Lexiscan in the past. Blood pressure 102/59, heart rate 59, pulse ox 95% on room air. EKG: Sinus rhythm with no acute ST-T wave changes Laboratory studies: WBC 8.9, hemoglobin 12.1. Sodium 136, potassium 4.6, creatinine 0.92. Troponin negative x 2. Triglycerides 104, cholesterol 90, LDL 26. Home cardiac medications: Aspirin 81 mg daily, Zetia 10 mg daily, lisinopril 10 mg daily, Lopressor 12.5 mg twice daily, Nitrostat as needed, Aldactone 25 mg daily. Echocardiogram performed in the office on 02/27/2024 revealed EF of 55 to 60%, mild left ventricular hypertrophy. Moderate aortic regurgitation and moderate aortic stenosis. Aortic valve is calcified. Mild mitral regurgitation, mild tricuspid regurgitation, PASP 46 mmHg. Trace to mild pulmonic regurgitation. BASIL 09/02/2022 revealed trileaflet aortic valve with evidence of severe aortic insufficiency as well as reversal of flow in the descending aorta. Normal left ventricular dimension and systolic function. Mild to moderate mitral regurgitation. Mild to moderate tricuspid regurgitation. Intact interatrial septum. No evidence of pericardial effusion Cardiac catheterization 09/02/2022 revealed mild nonobstructive coronary artery disease. At least 3+ aortic insufficiency. 05/18 Patient apparently had episode of chest pain all through the night and received nitroglycerin at 720 this morning. He states he now feels weak. He did have a drop in his blood pressure following nitroglycerin. Orthostatics were checked which were positive at the time. Blood pressure is 90/54, heart rate 62, pulse ox 96% on room air. Repeat blood work reveals hemoglobin 13.1. Sodium 132, potassium 4.9, creatinine 1.04. Yesterday, Imdur 15 mg daily and Ranexa 500 mg twice daily were added to patient's medical regime. We also decreased lisinopril to 5 mg daily due to soft blood pressures. Echocardiogram reveals normal left ventricular size and systolic function. Moderate with mild to moderate AR, mild TR with no evidence of pulmonary hypertension. 05/19 Patient did not have any chest pain during the night. He did have some chest pain reported to his nurse this morning. He states he is feeling much better now. He has no chest wall tenderness. He has had no episodes of dizziness. He is currently maintained on aspirin 81 mg, Zetia, Imdur 30 mg, Lopressor 25 mg twice daily and Ranexa 500 mg twice daily. Blood pressure 97/52, heart rate 58, pulse ox 97% on room air. Physical examination: Gen: This is a 73-year-old male in no acute distress VS: reviewed HEENT: Head is atraumatic, normocephalic. Pupils equal, round. Sclerae is anicteric. NECK: Supple. No JVD. Right carotid bruit. LUNGS: Clear to auscultation. No wheezes or rhonchi. No intercostal retractions. HEART: Regular rate and rhythm. Systolic and diastolic murmur at the right and left upper sternal border. ABDOMEN: Soft No tenderness. EXTREMITIES: No pedal edema. No calf tenderness. NEUROLOGICAL: Patient is awake, alert and oriented x3. Assessment: Syncopal episode most likely due to nitroglycerin Atypical chest pain, acute coronary syndrome ruled out with negative troponin x 2 Dyspnea on exertion concerning for coronary artery disease, symptomatic aortic stenosis/aortic regurgitation Known carotid atherosclerosis status post left carotid endarterectomy Hypertension Dyslipidemia Remote history of tobacco use COPD Moderate aortic stenosis, mild to moderate AR, mild TR Plan: Continue patient on aspirin 81 mg, Zetia, Imdur 30 mg, Lopressor 25 mg twice daily and Ranexa 500 mg twice daily Continue to hold Aldactone Plan to ambulate patient in the hallway and monitor for symptoms including chest pain and dizziness. If patient is asymptomatic with ambulation, he is cleared from cardiology for discharge and will follow-up with Dr. Garcia in the office in 1 week. Further recommendations to follow based upon clinical course Nurse practitioner note has been reviewed, I agree with documented findings and plan of care. Patient was seen and examined. Objective - Vital Signs Vital signs: Vital Signs Temp 97.8 F 05/19/24 09:40 Pulse 60 05/19/24 09:40 Resp 16 05/19/24 09:40 BP 114/64 05/19/24 09:40 Pulse Ox 94 L 05/19/24 09:40 FiO2 Intake & Output 05/18/24 05/19/24 05/19/24 18:59 06:59 18:59 Intake Total 360 240 Balance 360 240 Weight 85.6 kg Intake: Oral 360 240 Other: Voiding Method Toilet Toilet # Voids 1 - Labs CBC & Chem 7: 05/18/24 12:05 05/18/24 12:05 Labs: Abnormal Lab Results - Last 24 Hours (Table) 05/18/24 Range/Units 12:05 Sodium 132 L (137-145) mmol/L
--- NOTE | 2024-05-19 14:34 | P.DS ---
Providers Date of admission: 05/16/24 19:08 Expected date of discharge: 05/19/24 Attending physician: Trang Forbes Consults: 05/16/24 19:08 Consult Physician Urgent Consulting Provider: [facility] Consult Reason/Comments: Unstable angina, syncope Do you want consulting provider notified?: Yes Primary care physician: Evelyn Vallejo - Discharge Diagnosis(es) (1) Unstable angina Current Visit: Yes Status: Acute Hospital Course: Discharge diagnoses; Unstable angina - Cardiology do not recommend any ischemic workup at this time, dose of Imdur increased to 30 mg and Ranexa to be continued Syncope -Resolved Right knee pain Being discharged on Voltaren Hypertension -Lisinopril discontinued because of hypotension Dyslipidemia - Continue home meds Hospital course; Jose Serraclarke 73 y.o. M with past medical history of OR with catheter placed, s/p right carotid endarterectomy, hypertension dyslipidemia presents with unstable angina and syncope. Patient symptoms began yesterday morning with central chest pain radiating to jaw stabbing and squeezing in nature which was alleviated moderately with nitroglycerin and symptoms began to recur with dyspnea and syncope. At this time patient had syncopal episode witnessed by spouse. Reports no tongue biting, post-ictal or urinary incontinence at the time. Patient also attest to right knee pain. Over the last few weeks patient also describes dyspnea with walking short distances. Today patient feels well denies shortness of breath chest pain nausea vomiting chills fever. 05-18-24 - Patient seen at bedside. Episodes of chest pain and dypnea 2x, given Imdur which resolved symptoms. Knee pain is present, improved moderately with ice. He reports absence of nausea, vomiting, chills, fever. Ddimer and CTA chest thorax reviewed. 05-19-24 - Patient seen at bedside. Patient had episode of recurrent chest pain this morning, cardiology eval the patient, recommended discontinuing lisinopril, recommended continuing with Imdur, Ranexa. Aldactone on hold at this time. Cardiology recommend outpatient follow-up. For patient right knee pain, patient was discharged on diclofenac gel. PHYSICAL EXAMINATION: GENERAL: The patient is alert and oriented x3, not in any acute distress. Well developed, well nourished. HEENT: Pupils are round and equally reacting to light. EOMI. No scleral icterus. No conjunctival pallor. Normocephalic, atraumatic. No pharyngeal erythema. No thyromegaly. CARDIOVASCULAR: S1 and S2 present. No murmurs, rubs, or gallops. PULMONARY: Chest is clear to auscultation, no wheezing or crackles. ABDOMEN: Soft, nontender, nondistended, normoactive bowel sounds. No palpable organomegaly. MUSCULOSKELETAL: No joint swelling or deformity. EXTREMITIES: No cyanosis, clubbing, or pedal edema. NEUROLOGICAL: Gross neurological examination did not reveal any focal deficits. SKIN: No rashes. Dictation was produced using [employer] dictation software. please excuse any grammatical, word or spelling errors. Patient Condition at Discharge: Good Plan - Discharge Summary Discharge Rx Participant: Yes New Discharge Prescriptions: New Isosorbide Mononitrate ER [Imdur] 30 mg PO DAILY 30 Days #30 tab Metoprolol Tartrate [Lopressor] 25 mg PO BID 30 Days #60 tab Ranolazine [Ranexa] 500 mg PO Q12HR 30 Days #60 tab Diclofenac Sodium Gel [Voltaren 1% Gel] 2 gm TOPICAL QID 7 Days #1 each Continue Aspirin 81 mg PO DAILY Ipratropium Floweree [Atrovent Hfa] 2 puff INHALATION RT-BID Montelukast [Singulair] 10 mg PO HS Nitroglycerin Sl Tabs [Nitrostat] 0.4 mg SL Q5M PRN PRN Reason: Chest Pain Albuterol Sulfate [Ventolin HFA] 2 puff INHALATION RT-Q6H PRN PRN Reason: Shortness Of Breath Beclomethasone Dipropionate [Qvar 80mcg Redihaler] 2 puff INHALATION RT-BID Ezetimibe [Zetia] 10 mg PO DAILY Discontinued Spironolactone [Aldactone] 25 mg PO DAILY lisinopriL [Zestril] 10 mg PO DAILY Metoprolol Tartrate [Lopressor] 12.5 mg PO BID Discharge Medication List Aspirin 81 mg PO DAILY 06/21/14 [History] Albuterol Sulfate [Ventolin HFA] 2 puff INHALATION RT-Q6H PRN 12/09/22 [History] Beclomethasone Dipropionate [Qvar 80mcg Redihaler] 2 puff INHALATION RT-BID 12/09/22 [History] Ipratropium Floweree [Atrovent Hfa] 2 puff INHALATION RT-BID 12/09/22 [History] Montelukast [Singulair] 10 mg PO HS 12/09/22 [History] Nitroglycerin Sl Tabs [Nitrostat] 0.4 mg SL Q5M PRN 02/07/23 [History] Ezetimibe [Zetia] 10 mg PO DAILY 05/16/24 [History] Diclofenac Sodium Gel [Voltaren 1% Gel] 2 gm TOPICAL QID 7 Days #1 each 05/19/24 [Rx] Isosorbide Mononitrate ER [Imdur] 30 mg PO DAILY 30 Days #30 tab 05/19/24 [Rx] Metoprolol Tartrate [Lopressor] 25 mg PO BID 30 Days #60 tab 05/19/24 [Rx] Ranolazine [Ranexa] 500 mg PO Q12HR 30 Days #60 tab 05/19/24 [Rx] Follow up Appointment(s)/Referral(s): Gustavo Garcia MD [STAFF PHYSICIAN] - 1 Week Evelyn Vallejo [Primary Care Provider] - 1-2 days
== END 2024-05-19 16:30 | disposition home or self-care (01) | DRG 303 ==
LOC: EC 16:44 → 3SCARD 19:08
PROVIDERS: ADMIT Hospitalist; ATTEND Hospitalist
DX: I25.110 Atherosclerotic heart disease of native coronary artery with unstable angina pectoris (principal); F17.210 Nicotine dependence, cigarettes, uncomplicated; E78.5 Hyperlipidemia, unspecified; I10 Essential (primary) hypertension; I08.3 Combined rheumatic disorders of mitral, aortic and tricuspid valves; R00.1 Bradycardia, unspecified; M25.561 Pain in right knee; T46.3X5A Adverse effect of coronary vasodilators, initial encounter; R55 Syncope and collapse; J44.9 Chronic obstructive pulmonary disease, unspecified; I25.2 Old myocardial infarction; Z79.82 Long term (current) use of aspirin; Z79.899 Other long term (current) drug therapy; Z82.49 Family history of ischemic heart disease and other diseases of the circulatory system; Z88.5 Allergy status to narcotic agent; X58.XXXA Exposure to other specified factors, initial encounter
CPT/HCPCS: 80053; 80061; 84484; 85025; 85379; 85652; 85730; 86140; 93005; 93306; 93970; 94640; 96365; 96366; 99285